=== PATIENT | female | born 1950 | race Caucasian/White ===

== ENCOUNTER 2016-09-22 05:06 | Emergency (ER) | payer MEDICARE ==
[2016-09-22] MEDS ORDERED: IPRATROPIUM-ALBUTEROL 3 ML NEB INHALATION STA ×2 (05:33→07:16)
--- NOTE | 2016-09-22 06:41 | XR ---
EXAM:Chest PA and lateral views INDICATION: 66 year-old female chest pain. COMPARISON: None. FINDINGS: PA and lateral views of the chest are obtained. Aortic calcification. The cardiomediastinal silhouette is within normal limits. Lungs are clear. No focal consolidation, pneumothorax, or pleural effusions. Degenerative changes of the spine. IMPRESSION: No acute cardiopulmonary disease.
--- NOTE | 2016-09-22 07:21 | ED ---
General Adult HPI - General Chief complaint: Shortness of Breath Stated complaint: asthma Time Seen by Provider: 09/22/16 07:00 Source: patient, RN notes reviewed Mode of arrival: ambulatory Limitations: no limitations - History of Present Illness Initial comments: This 66-year-old female with past medical history significant for COPD. Patient states she was recently started on Levaquin 2 days ago. Patient states this morning she woke up very short of breath and she decided to come into the emergency department. Patient states she thinks she might have panicked a little. Patient states when she arrived she was 94% on pulse ox which is pretty typical for her. Patient denies any chest pain or palpitations. Patient denies any recent fever. Patient states she has had a cough recently. Patient denies any headache patient denies numbness weakness. Patient denies lightheadedness dizziness or near syncopal episode. I saw the patient she received a breathing treatment and stated that this point in time she felt back to her baseline. - Related Data Home Medications Medication Instructions Recorded Confirmed ALPRAZolam [Xanax] 0.75 mg PO HS 10/10/15 09/22/16 Albuterol Sulfate [Proair Hfa] 1 - 2 puff INHALATION Q6HR PRN 10/10/15 09/22/16 Atenolol [Tenormin] 50 mg PO HS 10/10/15 09/22/16 Beclomethasone Dipropionate [Qvar 2 puff INHALATION BID 10/10/15 09/22/16 80 mcg/puff] Cetirizine HCl [Zyrtec] 10 mg PO DAILY PRN 10/10/15 09/22/16 Imipramine HCl 100 mg PO HS 10/10/15 09/22/16 Montelukast [Singulair] 10 mg PO HS 10/10/15 09/22/16 Simvastatin [Zocor] 20 mg PO HS 10/10/15 09/22/16 Allergies Allergy/AdvReac Type Severity Reaction Status Date / Time Penicillins Allergy Unknown Rash/Hives Verified 10/11/15 07:23 Review of Systems ROS Statement: Those systems with pertinent positive or pertinent negative responses have been documented in the HPI. ROS Other: All systems not noted in ROS Statement are negative. Past Medical History Past Medical History: Asthma, Hyperlipidemia Additional Past Medical History / Comment(s): HX OF GRAVES DISEASE WITH THYROID REMOVED & TAKES TENORMIN FOR OF RAPID HEART BEAT ., ENVIRONMENTAL ALLERGIES, COLITIS, History of Any Multi-Drug Resistant Organisms: None Reported Past Surgical History: Tonsillectomy, Tubal Ligation Additional Past Surgical History / Comment(s): THYROIDECTOMY Past Anesthesia/Blood Transfusion Reactions: No Reported Reaction, Family History of Problems w/ Anesthesia Additional Past Anesthesia/Blood Transfusion Reaction / Comment(s): SISTER = PONV Past Psychological History: Anxiety Smoking Status: Current every day smoker Past Alcohol Use History: Occasional Additional Past Alcohol Use History / Comment(s): SMOKES 1 PPD . SMOKING FOR 40 YEARS. Past Drug Use History: None Reported - Past Family History Mother Family Medical History: Cancer Additional Family Medical History / Comment(s): UTERINE CA Father Family Medical History: Cancer Additional Family Medical History / Comment(s): MULTIPLE MYELOMA General Exam - General Exam Comments Initial Comments: GENERAL: Patient is well-developed and well-nourished. Patient is nontoxic and well- hydrated and is in no acute distress. ENT: Neck is soft and supple. No significant lymphadenopathy is noted. Oropharynx is clear. Moist mucous membranes. Neck has full range of motion without eliciting any pain. EYES: The sclera were anicteric and conjunctiva were pink and moist. Extraocular movements were intact and pupils were equal round and reactive to light. Eyelids were unremarkable. PULMONARY: Patient still had expiratory wheezing bilaterally CARDIOVASCULAR: There is a regular rate and rhythm without any murmurs gallops or rubs. ABDOMEN: Soft and nontender with normal bowel sounds. No palpable organomegaly was noted. There is no palpable pulsatile mass. SKIN: Skin is clear with no lesions or rashes and otherwise unremarkable. NEUROLOGIC: Patient is alert and oriented x3. Cranial nerves II through XII are grossly intact. Motor and sensory are also intact. Normal speech, volume and content. Symmetrical smile. MUSCULOSKELETAL: Normal extremities with adequate strength and full range of motion. No lower extremity swelling or edema. No calf tenderness. LYMPHATICS: No significant lymphadenopathy is noted PSYCHIATRIC: Normal psychiatric evaluation. Normal interpersonal interactions appears functionally intact in deals appropriately with others. No signs of depression. No signs of anxiety. Limitations: no limitations Course Vital Signs 09/22/16 09/22/16 09/22/16 05:11 05:43 05:55 Temperature 97.8 F Pulse Rate 98 96 100 Respiratory 20 Rate Blood Pressure 149/70 O2 Sat by Pulse 94 L Oximetry 09/22/16 09/22/16 07:23 07:34 Temperature Pulse Rate 88 92 Respiratory Rate Blood Pressure O2 Sat by Pulse Oximetry Medical Decision Making - Medical Decision Making Patient received a breathing treatment prior to my seeing the patient. I gave her a second one she continued to have a current wheezing. She was satting 98% on room air felt considerably better though she continued to have some expiratory wheezing patient wanted to go home. I discharge the patient home. Patient has inhalers at home as well as steroids and an antibiotic. However patient does continue to smoke and I informed her that she needed to quit smoking and told her some of the detrimental effects of smoking she seemed to realizes and stated that it was about time. This conversation lasted for approximately 3 minutes. Disposition Clinical Impression: COPD exacerbation Disposition: HOME SELF-CARE Instructions: COPD (Chronic Obstructive Pulmonary Disease) (ED) Referrals: Maxi Sotelo MD [Primary Care Provider] - 1-2 days Time of Disposition: 07:51
[2016-09-22 07:34] VITALS: PULSE 92
[2016-09-22 08:17] VITALS: BP 142/70; RESP 18; TEMP 97.7
== END 2016-09-22 08:17 | disposition home or self-care (01) ==
LOC: EC 05:06
DX: J44.1 Chronic obstructive pulmonary disease with (acute) exacerbation (principal); E78.5 Hyperlipidemia, unspecified; F41.9 Anxiety disorder, unspecified; F17.200 Nicotine dependence, unspecified, uncomplicated; Z79.51 Long term (current) use of inhaled steroids; Z79.899 Other long term (current) drug therapy; Z88.0 Allergy status to penicillin
CPT/HCPCS: 71020; 94640; 99285

== ENCOUNTER → 2016-10-15 | Outpatient (CLI) | payer MEDICARE ==
[2016-10-15 11:29] LABS: Blood Urea Nitrogen 6 mg/dL (7-17); Non-African American GFR(MDRD) >60 (>60 ml/min/1.73 sqM)
--- NOTE | 2016-10-15 14:38 | CT ---
EXAMINATION TYPE: CT abdomen pelvis wo/w con DATE OF EXAM: 10/15/2016 COMPARISON: 10/26/2010 INDICATION: Patient complains of history of colitis and recent weight loss. DLP: 1247.1 mGycm, Automated exposure control for dose reduction was used. CONTRAST: 100 mL of Omnipaque 300. Study performed with Oral Contrast TECHNIQUE: Axial images were obtained from above the diaphragm to the pubic rami in the axial plane a t 5 mm thick sections. Reconstructed images are reviewed on the computer in the coronal plane. FINDINGS: Limited CT sections are obtained the lung bases. The lung bases are clear. CT ABDOMEN: Liver: Normal Spleen: Normal Pancreas: Normal Adrenal glands: The adrenal glands are normal. Gallbladder: Normal Kidneys: No masses are evident. No hydronephrosis is present. No cysts are present. Delayed images were obtained through the kidneys, which remain unremarkable. Aorta: Vascular calcification is within the aorta. Inferior vena cava: Normal. CT PELVIS: Loops of bowel within the abdomen and pelvis are normal. There are loops of bowel which are incom pletely distended or lack oral contrast limiting their evaluation. There may be some wall thickening within the mid to distal sigmoid colon. This could be related to incomplete distention. Underlying co litis or mass is not excluded. Sigmoidoscopy could further evaluate this region. This appears changed from 10/26/2010. Appendix: Not clearly identified. No suspicious inflammatory changes are evident. What appears to be appendix is not opacified. Urinary bladder: Normal. Genitourinary structures: Uterus contains some calcification. Calcified fibroid is likely within the left body of the uterus. Adnexal regions are clear. No free fluid is within the pelvis Osseous structures: Degenerative disc changes and scoliosis are within the lumbar spine. IMPRESSIONS: 1. Incomplete distention or some diffuse thickening through the distal sigmoid colon is not excluded . Consider sigmoidoscopy for additional evaluation.
== END | disposition home or self-care (01) ==
LOC: RADCTMAIN 10:41
PROVIDERS: ATTEND Internal Medicine Gastroenterology
DX: R63.4 Abnormal weight loss (principal)
CPT/HCPCS: 82565; 84520; 74178; 36415; Q9967

== ENCOUNTER → 2017-03-29 | Outpatient (CLI) | payer MEDICARE ==
--- NOTE | 2017-04-02 08:37 | MM ---
Reason for exam: screening (asymptomatic). Last mammogram was performed 1 year and 1 month ago. History: Patient is postmenopausal and is nulliparous. Family history of breast cancer in mother at age 65 and premenopausal breast cancer in maternal aunt. Physical Findings: A clinical breast exam by your physician is recommended on an annual basis and results should be correlated with mammographic findings. MG 3D Screening Mammo W/Cad Bilateral CC and MLO view(s) were taken. Prior study comparison: March 08, 2016, bilateral MG 3d screening mammo w/cad. August 22, 2015, right breast MG 3d diag mammo w/cad RT. The breast tissue is heterogeneously dense. This may lower the sensitivity of mammography. Stable calcifications in the right upper outer quadrant. No significant changes when compared with prior studies. ASSESSMENT: Negative, BI-RAD 1 RECOMMENDATION: Routine screening mammogram of both breasts in 1 year.
== END | disposition home or self-care (01) ==
LOC: RADMAMWWP 15:14
PROVIDERS: ATTEND Family Medicine
DX: Z12.31 Encounter for screening mammogram for malignant neoplasm of breast (principal)
CPT/HCPCS: 77063; G0202

== ENCOUNTER → 2018-02-13 | Outpatient (CLI) | payer MEDICARE ==
--- NOTE | 2018-02-13 20:59 | EST ---
EXERCISE STRESS DATE OF SERVICE: 02/13/2018 AGE: 67 SEX: Fe HT: 66" WT: 170 PROTOCOL: Stress Echo STAGE: 2 DURATION OF EXERCISE: 4:00 minutes HEART RATE REST: 107 BLOOD PRESSURE REST: 101/53 MAXIMUM HEART RATE ACHIEVED: 153 MAXIMUM BLOOD PRESSURE: 151/42 85% MPHR: 130 100% MPHR: 153 METS: 5.6 INDICATIONS: Palpitations. CONCLUSION: Baseline EKG revealed normal sinus rhythm without significant ST-T changes. Patient walked on a standard Michael protocol for 4 minutes and achieved a maximal heart rate of 153 beats per minute which is well above 85% of predicted maximal. There was no evidence of any stress-induced ischemia on this study. There was some artifact noted. Patient did not have any angina and there was no significant arrhythmia. By EKG criteria, this is a negative stress test with limited exercise capacity. Baseline echo images revealed normal wall motion wall thickening of all segments. At peak exercise there was good augmentation of left ventricular wall motion wall thickening of all segments suggesting that there is no evidence of stress-induced ischemia on this study. IMPRESSION: 1. Limited exercise capacity with a negative stress test by EKG criteria. 2. Normal stress echocardiogram. MMODL / IJN: [id number] /
== END ==
LOC: RADNMMAIN 09:53
PROVIDERS: ATTEND Family Medicine
DX: R00.2 Palpitations (principal)
CPT/HCPCS: 93351

== ENCOUNTER → 2018-03-31 | Outpatient (CLI) | payer MEDICARE ==
--- NOTE | 2018-03-31 13:45 | BD ---
EXAMINATION TYPE: Axial Bone Density DATE OF EXAM: 03/31/2018 COMPARISON: 02/09/15 CLINICAL HISTORY: Postmenopausal female. Osteoporosis screening. Height: 63.5 IN Weight: 170 LBS FRAX RISK QUESTIONS: Secondary Osteoporosis: Current Tobacco Use: YES RISK FACTORS HISTORY OF: Active: YES Diet low in dairy products/other sources of calcium: YES Postmenopausal woman: AGE 49 Take estrogen and/or progesterone medications: NOT NOW How lon YEARS Lost more than 2 inches in height since high school: YES 05/07" MEDICATIONS: Additional Medications: VIT D, TENORMIN, SINGULAIR, IMPRANIME, CHOLESTEROL MEDS, XANAX, REMICADE INFU SIONS FOR COLITIS, INHALERS EXAM MEASUREMENTS: Bone mineral densitometry was performed using the [place] System. Bone mineral density as measured about the Lumbar spine is: ----- L1-L4(G/cm2): 1.243 T Score Values are as follows: ----- L2: -0.1 ----- L3: -0.4 ----- L4: 1.7 ----- L1-L4: 0.5 Bone mineral density has: Increased 1.5% since study of: 02/09/2015 Bone mineral density about the R hip (g/cm2): 0.864 Bone mineral density about the L hip (g/cm2): 0.938 T Score values are as follows: -----R Neck: -1.2 -----L Neck: -0.7 -----R Total: -0.7 -----L Total: -0.6 Bone mineral density has: Decreased -2.6% since study of: 02/09/2015 IMPRESSION: Osteopenia (T Score between -2.5 and -1) with regards to the right femur. There is slightly increased risk of fracture and the patient may be considered for treatment. Re-Screen 2-5 years. NOTE: T-SCORE=SD OF THE YOUNG ADULT MEAN.
--- NOTE | 2018-04-01 14:34 | MM ---
Reason for exam: screening (asymptomatic). Last mammogram was performed 1 year ago. History: Patient is postmenopausal and is nulliparous. Family history of breast cancer in mother at age 65 and premenopausal breast cancer in maternal aunt. Physical Findings: A clinical breast exam by your physician is recommended on an annual basis and results should be correlated with mammographic findings. MG 3D Screening Mammo W/Cad Bilateral CC and MLO view(s) were taken. Prior study comparison: March 29, 2017, bilateral MG 3d screening mammo w/cad. March 08, 2016, bilateral MG 3d screening mammo w/cad. The breast tissue is heterogeneously dense. This may lower the sensitivity of mammography. There is chronic nodularity bilaterally. Increasing nodule upper inner left breast middle third position. ASSESSMENT: Incomplete: need additional imaging evaluation, BI-RAD 0 RECOMMENDATION: Special view mammogram of the left breast. If lesion persists on supplemental views, image directed ultrasound is recommended. [facility] will attempt to contact patient to return for supplemental views and ultrasound if indicated.
== END | disposition home or self-care (01) ==
LOC: RADMAMWWP 11:51
PROVIDERS: ATTEND Family Medicine
DX: Z12.31 Encounter for screening mammogram for malignant neoplasm of breast (principal); M85.88 Other specified disorders of bone density and structure, other site; R00.2 Palpitations; Z78.0 Asymptomatic menopausal state
CPT/HCPCS: 77063; 77067; 77080

== ENCOUNTER → 2018-04-04 | Outpatient (CLI) | payer MEDICARE ==
--- NOTE | 2018-04-07 08:56 | MM ---
Reason for exam: additional evaluation requested from abnormal screening. Last mammogram was performed less than 1 month ago. History: Patient is postmenopausal and is nulliparous. Family history of breast cancer in mother at age 65 and premenopausal breast cancer in maternal aunt. Took hormonal contraceptives beginning at age 20. Physical Findings: Nurse did not find any significant physical abnormalities on exam. MG 3D Work Up W/Cad LT Spot compression CC, spot compression MLO, and LM view(s) were taken of the left breast. Prior study comparison: March 31, 2018, bilateral MG 3d screening mammo w/cad. March 29, 2017, bilateral MG 3d screening mammo w/cad. Density is improved however persists. Ultrasound is recommended. These results were verbally communicated with the patient and result sheet given to the patient on 04/04/18. ASSESSMENT: Incomplete: need additional imaging evaluation, BI-RAD 0 RECOMMENDATION: Ultrasound of the left breast.
--- NOTE | 2018-04-07 09:47 | USB ---
Reason for exam: additional evaluation requested from abnormal screening. History: Patient is postmenopausal and is nulliparous. Family history of breast cancer in mother at age 65 and premenopausal breast cancer in maternal aunt. Took hormonal contraceptives beginning at age 20. US Breast Workup Limited LT Left limited breast ultrasound including focal area of concern, retroareolar and axilla demonstrates no cystic or solid lesion seen. These results were verbally communicated with the patient and result sheet given to the patient on 04/04/18. ASSESSMENT: Probably benign, BI-RAD 3 RECOMMENDATION: Follow-up diagnostic mammogram of the left breast in 6 months.
== END ==
LOC: RADMAMWWP 13:33
PROVIDERS: ATTEND Family Medicine
DX: R92.8 Other abnormal and inconclusive findings on diagnostic imaging of breast (principal)
CPT/HCPCS: 77065; 76642; G0279; 77061

== ENCOUNTER → 2018-08-04 | Outpatient (CLI) | payer MEDICARE ==
--- NOTE | 2018-08-04 11:08 | US ---
EXAMINATION TYPE: US duplex aorta DATE OF EXAM: 08/04/2018 COMPARISON: CT abdomen and pelvis 2017 CLINICAL HISTORY: I70.0 Atherosclerosis of aorta. no h/o AAA, no symptoms EXAM MEASUREMENTS: Abdominal Aorta: Proximal: 2.5 x 2.0cm Mid: 2.2 x 1.8cm Distal: 1.7 x 1.5cm Bifurcation: Rt1.0cm Lt1.0cm Normal caliber aorta seen with arthrosclerotic changes seen. IMPRESSION: No ultrasound evidence for AAA. Findings correlate with [address] CT.
--- NOTE | 2018-08-04 11:09 | US ---
EXAMINATION TYPE: US carotid duplex BILAT DATE OF EXAM: 08/04/2018 COMPARISON: NONE CLINICAL HISTORY: I70.0 Atherosclerosis of aorta. dizziness, no h/o stroke EXAM MEASUREMENTS: RIGHT: Peak Systolic Velocity (PSV) cm/sec ----- Right CCA: 75.8 ----- Right ICA: 122.0 ----- Right ECA: 155.0 ICA/CCA ratio: 1.6 RIGHT: End Diastole cm/sec ----- Right CCA: 19.2 ----- Right ICA: 43.8 ----- Right ECA: 19.2 LEFT: Peak Systolic Velocity (PSV) cm/sec ----- Left CCA: 89.5 ----- Left ICA: 139.0 ----- Left ECA: 175 ICA/CCA ratio: 1.5 LEFT: End Diastole cm/sec ----- Left CCA: 26.2 ----- Left ICA: 36.2 ----- Left ECA: 29.2 VERTEBRALS (direction of flow): Right Vertebral: Antegrade Left Vertebral: Antegrade Rhythm: Normal Mild homogeneous plaque with no stenosis seen, tortuous dist ICA noted IMPRESSION: No hemodynamic significant stenosis seen in either internal carotid artery. Criteria for Assigning % of Stenosis / Diameter reduction (Estimation based on the indirect measurements of the internal carotid artery velocities (ICA PSV). 1. Normal (no stenosis)=ICA PSV < 125 cm/s: ratio < 2.0: ICA EDV<40 cm/s. 2. Less than 50% stenosis=ICA PSV < 125 cm/s: ratio < 2.0: ICA EDV<40 cm/s. 3. 50 to 69% stenosis=ICA PSV of 125 to 230 cm/s: ration 2.0 ? 4.0: ICA EDV 40-100 cm/s. 4. Greater than 70% stenosis to near occlusion= ICA PSV > 230 cm/s: ratio > 4.0: ICA EDV > 100 cm/s. 5. Near occlusion= ICA PSV velocities may be low or undetectable: variable ratio and ICA EDV. 6. Total occlusion=unable to detect flow.
== END | disposition home or self-care (01) ==
LOC: RADUSWWP 10:16
PROVIDERS: ATTEND Family Medicine
DX: I70.0 Atherosclerosis of aorta (principal); R42 Dizziness and giddiness
CPT/HCPCS: 93880; 93979

== ENCOUNTER → 2018-08-26 | Outpatient (CLI) | payer MEDICARE | END | disposition home or self-care (01) | LOC: LABWHC1 16:06 | PROVIDERS: ATTEND Internal Medicine | DX: K51.519 Left sided colitis with unspecified complications (principal) | CPT/HCPCS: 36415; 86480 ==

== ENCOUNTER → 2018-10-27 | Outpatient (CLI) | payer MEDICARE ==
--- NOTE | 2018-10-27 13:40 | MM ---
Reason for exam: follow-up at short interval from prior study. Last mammogram was performed 7 months ago. History: Patient is postmenopausal and is nulliparous. Family history of breast cancer in mother at age 65 and premenopausal breast cancer in maternal aunt. Took hormonal contraceptives beginning at age 20. Physical Findings: Nurse did not find any significant physical abnormalities on exam. MG 3D Diag Mammo W/Cad LT CC, MLO, and ML view(s) were taken of the left breast. Prior study comparison: April 04, 2018, left breast MG 3d work up w/cad LT. March 31, 2018, bilateral MG 3d screening mammo w/cad. The breast tissue is heterogeneously dense. This may lower the sensitivity of mammography. No suspicious abnormality. The left upper inner quadrant focal asymmetry is stable back to 2013 and should be considered benign. These results were verbally communicated with the patient and result sheet given to the patient on 10/27/18. ASSESSMENT: Benign, BI-RAD 2 RECOMMENDATION: Return to routine screening mammogram schedule for both breasts. Back on schedule for March 2019.
== END | disposition home or self-care (01) ==
LOC: RADMAMWWP 12:54
PROVIDERS: ATTEND Family Medicine
DX: R92.8 Other abnormal and inconclusive findings on diagnostic imaging of breast (principal)
CPT/HCPCS: 77065; G0279; 77061

== ENCOUNTER → 2019-04-16 | Outpatient (CLI) | payer MEDICARE ==
--- NOTE | 2019-04-17 10:39 | MM ---
Reason for exam: follow-up at short interval from prior study. Last mammogram was performed 6 months ago. History: Patient is postmenopausal and is nulliparous. Family history of breast cancer in mother at age 65 and premenopausal breast cancer in maternal aunt. Took hormonal contraceptives beginning at age 20. Physical Findings: Nurse did not find any significant physical abnormalities on exam. MG 3D Diag Mammo W/Cad MARIELA Bilateral CC and MLO view(s) were taken. Prior study comparison: October 27, 2018, left breast MG 3d diag mammo w/cad LT. April 04, 2018, left breast MG 3d work up w/cad LT. The breast tissue is heterogeneously dense. This may lower the sensitivity of mammography. Stable calcifications right breast. Focal asymmetry inner left CC is stable dating back to 2014. These results were verbally communicated with the patient and result sheet given to the patient on 04/16/19. ASSESSMENT: Benign, BI-RAD 2 RECOMMENDATION: Routine screening mammogram of both breasts in 1 year.
== END ==
LOC: RADMAMWWP 13:00
PROVIDERS: ATTEND Family Medicine
DX: R92.8 Other abnormal and inconclusive findings on diagnostic imaging of breast (principal)
CPT/HCPCS: 77066; G0279; 77062

== ENCOUNTER → 2019-06-08 | Outpatient (CLI) | payer MEDICARE ==
[2019-06-08 12:33] LABS: African American GFR (CKD) >90 (>60 ml/min/1.73 sqM); Blood Urea Nitrogen 11 mg/dL (7-17); Non-African American GFR(CKD) >90 (>60 ml/min/1.73 sqM)
--- NOTE | 2019-06-08 13:25 | CT ---
EXAMINATION TYPE: CT chest w con DATE OF EXAM: 06/08/2019 COMPARISON: None HISTORY: Right upper lung mass found on MRI. CT DLP: 291 mGycm Automated exposure control for dose reduction was used. CONTRAST: CT scan of the chest is performed with IV Contrast, patient injected with 100 mL of Isovue 300. FINDINGS: LUNGS: Pleural-based right upper lobe pulmonary nodule measuring 1.9 x 1.9 cm. Few scattered sub-3 mm pulmonary nodules are seen scattered within the right lung. There is interstitial prominence noted b ilaterally. MEDIASTINUM: There are no greater than 1 cm hilar or mediastinal lymph nodes. No pericardial effusi on is seen. Thoracic aorta is of normal caliber. The heart is not enlarged. UPPER ABDOMEN: No significant abnormality appreciated. OTHER: No additional significant abnormality is seen. IMPRESSION: 1. Pleural-based right upper lobe pulmonary nodule measuring 1.9 x 1.9 cm. Few scattered sub-3 mm pu lmonary nodules are seen scattered within the right lung. Primary malignancy or metastatic disease no t excluded.
== END | disposition home or self-care (01) ==
LOC: RADCTMAIN 11:56
PROVIDERS: ATTEND Internal Medicine Critical Care Medicine
DX: R91.1 Solitary pulmonary nodule (principal); Z88.0 Allergy status to penicillin; Z79.2 Long term (current) use of antibiotics
CPT/HCPCS: 82565; 84520; 71260; 36415; Q9967

== ENCOUNTER → 2019-06-12 | Outpatient (CLI) | payer MEDICARE ==
--- NOTE | 2019-06-16 13:05 | PE ---
EXAMINATION TYPE: PET CT fusion skull to thigh DATE OF EXAM: 06/12/2019 COMPARISON: CT chest dated 06/08/2019 HISTORY: Solitary pulmonary nodule. Initial treatment strategy. Left lung biopsy on 06/15/2019. TECHNIQUE: Following the intravenous administration of 13.5 mCi of F-18 FDG, whole body images are p erformed from the skull base to the midthigh. Images are reviewed on the computer in the coronal, ax ial, and sagittal planes. Reconstructed rotating images are created on independent workstation and r eviewed on the computer. A localization and attenuation correction CT is performed in conjunction w ith the PET scan. SCAN: Initial treatment strategy FINDINGS: Mediastinal background: 0.88 Abdominal background: 2.34 SKULL BASE AND NECK: No suspicious hypermetabolic uptake. CHEST, MEDIASTINUM, AND HILAR REGION: The pleural-based 1.9 cm right upper lobe pulmonary nodule has a maximum SUV of 4.0. The scattered sub-3 mm pulmonary nodules in the right lung are below the thresh old of PET CT and cannot be evaluated with PET/CT. ABDOMEN AND PELVIS: There is focal hypermetabolic uptake (maximum SUV of 4.6) anterior to the left th igh adductor musculature with a small nodule 8 mm and surrounding focal fat stranding. Correlate for recent intervention within the left groin. OSSEOUS STRUCTURES: No suspicious hypermetabolic uptake. OTHER CT: Moderate atheromatous changes are seen of the carotid arteries. Moderate to severe atherosc lerosis of the thoracic aorta. Main pulmonary artery is mildly enlarged measuring 3.1 cm. Moderate co ronary artery calcifications are seen. There is a small hiatal hernia. There is moderate background emphysematous change of the lungs. Small splenule seen adjacent to the n ative spleen. There is a nonobstructing right upper pole 7 mm renal calculus. Extensive atheromatous changes of the abdominal aorta and its branches. Dystrophic calcifications adjacent to the uterus are likely contiguous with the uterus and likely from degenerative leiomyomas. Very small fat filled. Do uble hernia. Moderate degenerative change of the spine. IMPRESSION: 1. Solitary biopsy-proven 1.9 cm right upper lobe hypermetabolic pulmonary neoplasm. No evidence of m etastasis within the chest, abdomen, or pelvis. No abnormal thoracic, supraclavicular, or infradiaphr agmatic adenopathy. 2. Abnormal hypermetabolic uptake within the left anterior medial upper thigh subcutaneous tissues wi th FDG avidity greater than the solitary pulmonary nodule. Correlate for any recent surgical interven tion or trauma.
== END | disposition home or self-care (01) ==
LOC: RADPETMAIN 16:38
PROVIDERS: ATTEND Internal Medicine Critical Care Medicine
DX: R91.1 Solitary pulmonary nodule (principal)
CPT/HCPCS: 78815; A9552

== ENCOUNTER 2019-06-15 08:49 | Day surgery (SDC) | payer MEDICARE ==
[2019-06-15 09:27] VITALS: TEMP 98.1
[2019-06-15 09:32] LABS: Mean Platelet Volume 7.8; Platelet Count 393 k/uL (150-450)
[2019-06-15 09:45] LABS: INR 0.9 (<1.2); Prothrombin Time 9.9 sec (9.0-12.0)
--- NOTE | 2019-06-15 10:55 | XR ---
EXAMINATION TYPE: XR chest 1V portable DATE OF EXAM: 06/15/2019 COMPARISON: 06/08/2019 CT chest, 09/22/2016 INDICATION: Postbiopsy TECHNIQUE: Single frontal view of the chest is obtained. FINDINGS: The heart size is normal. The pulmonary vasculature is normal. There is diffuse increased lung markings throughout the bilateral lung dickerson. The anterior right upp er lobe nodule is not identified chest x-ray. No pneumothorax is evident post biopsy. IMPRESSION: 1. Diffuse increased lung markings. 2. No pneumothorax post biopsy
[2019-06-15 11:55] VITALS: RESP 16
--- NOTE | 2019-06-15 12:55 | XR ---
EXAMINATION TYPE: XR chest 1V portable DATE OF EXAM: 06/15/2019 COMPARISON: 06/15/2019 INDICATION: Post lung biopsy TECHNIQUE: Single frontal view of the chest is obtained. FINDINGS: The heart size is normal. The pulmonary vasculature is normal. There is diffuse increased lung markings. This may have some slight improvement over the interval. No pneumothorax is evident. Density left suprahilar region may be better visualized than the prior exam . IMPRESSION: 1. No pneumothorax post right lung biopsy.
[2019-06-15 13:07] VITALS: BP 135/63; PULSE 90
--- NOTE | 2019-06-15 13:11 | CT ---
EXAMINATION TYPE: CT biopsy lung LT DATE OF EXAM: 06/15/2019 COMPARISON: 06/12/2019 HISTORY: Right upper lobe lung mass CT DLP: 3328 mGycm The procedure is discussed with the patient, the risks, complications, benefits and alternatives, wer e discussed and any questions were answered. Informed consent was obtained. The patient is placed p sukumar on the CT table, prepped and draped in the usual sterile fashion. Utilizing a 20-gauge or biceps needle access into the right upper lobe mass was achieved with 2 passe s performed. Pathology pending. All elements of maximal barrier technique were utilized. The patie nt remained stable throughout the procedure with no immediate postprocedural complication. IMPRESSION: 1. Successful CT guided core biopsy right upper lobe lung mass
== END 2019-06-15 13:10 | disposition home or self-care (01) ==
LOC: RADPROMAIN 08:49
PROVIDERS: ATTEND Internal Medicine Critical Care Medicine
DX: C34.11 Malignant neoplasm of upper lobe, right bronchus or lung (principal)
CPT/HCPCS: 36415; 71045; 77012; 85049; 85610; 88305; 88341; 88342

== ENCOUNTER → 2019-07-09 | Outpatient (CLI) | payer MEDICARE ==
[2019-07-09 13:56] LABS: Appearance,Urine Cloudy (Clear); Bacteria,Urine Rare /hpf; Bilirubin,Urine Negative (Negative); Blood,Urine Negative (Negative); Color,Urine Yellow; Glucose,Urine (UA) Negative (Negative); Ketones,Urine Negative (Negative); Leukocyte Esterase,Urine Large (Negative); Mucus,Urine Many /hpf; Nitrite,Urine Negative (Negative); Protein,Urine Negative (Negative); Specific Gravity,Urine 1.011 (1.001-1.035); Squamous Epithelial Cell,Urine 13 /hpf (0-4); Urobilinogen,Urine <2.0 mg/dL (<2.0); WBC,Urine 5 /hpf (0-5)
[2019-07-09 14:28] LABS: Basophils # (A) 0.1 k/uL (0-0.2); Basophils % (A) 1 %; Eosinophils # (A) 0.1 k/uL (0-0.7); Eosinophils % (A) 1 %; HCT 46.3 % (34.0-46.0); HGB 14.9 gm/dL (11.4-16.0); Lymphocytes # (A) 2.5 k/uL (1.0-4.8); Lymphocytes % (A) 23 %; MCH 28.4 pg (25.0-35.0); MCHC 32.1 g/dL (31.0-37.0); MCV 88.6 fL (80.0-100.0); Mean Platelet Volume 7.8; Monocytes # (A) 0.5 k/uL (0-1.0); Monocytes % (A) 5 %; Neutrophils # (A) 7.6 k/uL (1.3-7.7); Neutrophils % (A) 69 %; Platelet Count 440 k/uL (150-450); RBC 5.23 m/uL (3.80-5.40); RDW 13.2 % (11.5-15.5)
[2019-07-09 14:33] LABS: INR 0.9 (<1.2); Partial Thromboplastin Time 26.8 sec (22.0-30.0); Prothrombin Time 9.7 sec (9.0-12.0)
[2019-07-09 14:50] LABS: African American GFR (CKD) >90 (>60 ml/min/1.73 sqM); Anion Gap 10 mmol/L; Blood Urea Nitrogen 8 mg/dL (7-17); Carbon Dioxide 27 mmol/L (22-30); Chloride 100 mmol/L (98-107); Glucose 97 mg/dL (74-99); Non-African American GFR(CKD) >90 (>60 ml/min/1.73 sqM); Potassium 4.1 mmol/L (3.5-5.1); Sodium 137 mmol/L (137-145)
== END | disposition home or self-care (01) ==
LOC: LABPAT 13:17
PROVIDERS: ATTEND Thoracic Surgery (Cardiothoracic Vascular Surgery)
DX: Z01.818 Encounter for other preprocedural examination (principal); Z01.812 Encounter for preprocedural laboratory examination; C34.11 Malignant neoplasm of upper lobe, right bronchus or lung; R73.9 Hyperglycemia, unspecified; R58 Hemorrhage, not elsewhere classified; Z51.81 Encounter for therapeutic drug level monitoring
CPT/HCPCS: 36415; 80051; 81001; 82565; 82947; 84520; 85025; 85610; 85730; 87086; 93005

== ENCOUNTER 2019-07-16 06:00 | Inpatient (IN) | payer MEDICARE ==
[2019-07-14 16:00] VITALS: BMI 30.6
[2019-07-16] MEDS ORDERED: HYDROmorphone 0.5 MG/0.5 ML SYRINGE IVP PRN (06:09)
[2019-07-16] MEDS ORDERED: fentaNYL (PF) 50 MCG/ML 2 ML AMP IVP PRN (06:09)
[2019-07-16] MEDS ORDERED: LIDOCAINE 1% (10MG/ML) FOR IV START INTRADERMA PRN (06:09)
[2019-07-16] MEDS ORDERED: MIDAZOLAM 2 MG/2 ML VIAL IV PRN (06:09)
[2019-07-16] MEDS ORDERED: ONDANSETRON 4 MG/2 ML VIAL IVP ONE (06:09)
[2019-07-16] MEDS ORDERED: DEXAMETHASONE SOD PHOSPHATE 10 MG/ML 1 ML VIAL IV ONE (06:09)
[2019-07-16] MEDS: LACTATED RINGERS 1,000 ML IV SCH (06:50)
[2019-07-16] MEDS ORDERED: SCOPOLAMINE 1.5MG/72HR PATCH TRANSDERM ONE (07:00)
[2019-07-16] MEDS ORDERED: HYDROmorphone (PF) 1 MG/ML ONE (07:25)
[2019-07-16] MEDS ORDERED: SUCCINYLCHOLINE CHLORIDE 100 MG/5 ML SYR IV ONE (07:25)
[2019-07-16] MEDS ORDERED: PROPOFOL 10 MG/ML 20 ML VIAL IV ONE (07:25)
[2019-07-16] MEDS ORDERED: ROCURONIUM BROMIDE 10 MG/ML 5 ML VIAL IV ONE (07:25)
[2019-07-16] MEDS ORDERED: .MORPHINE SULFATE (INJ) 10 MG/ML SYRINGE ONE (07:25)
[2019-07-16] MEDS ORDERED: fentaNYL (PF) 50 MCG/ML 2 ML AMP ONE (07:25)
[2019-07-16] MEDS ORDERED: GLYCOPYRROLATE 0.2 MG/ML 2 ML VIAL ONE (07:25)
[2019-07-16] MEDS ORDERED: NEOSTIGMINE 1 MG/ML 10 ML VIAL ONE (07:25)
[2019-07-16] MEDS ORDERED: METOPROLOL TARTRATE 5 MG/5 ML VIAL IVP ONE (07:25)
[2019-07-16] MEDS ORDERED: MIDAZOLAM 2 MG/2 ML VIAL ONE (07:25)
[2019-07-16] MEDS ORDERED: LIDOCAINE 1% INJ 10MG/ML (20 ML MDV) ONE (07:25)
[2019-07-16] MEDS ORDERED: BUPIVACAINE (PF) 0.5% 30 ML VIAL SQ ONE (08:27)
[2019-07-16] MEDS ORDERED: LACTATED RINGERS 1,000 ML IV ONE (09:03)
--- NOTE | 2019-07-16 10:49 | P.OP ---
Date of Procedure: 07/16/19 Preoperative Diagnosis: Adenocarcinoma right upper lobe of lung Postoperative Diagnosis: Same Procedure(s) Performed: Robotic-assisted thoracoscopic right upper lobectomy with mediastinal lymph node dissection Anesthesia: JIM Surgeon: Renny Reina Chief Vendor Quality #1: Saad Gurrola Estimated Blood Loss (ml): 20 IV fluids (ml): 1,000 Urine output (ml): 500 Pathology: other (Right upper lobe for frozen section of bronchial margin and permanent section; lymph node stations R4, level 7, R8, R9, R 10, R 11 all for permanent section) Condition: stable Disposition: PACU Indications for Procedure: 69-year-old female with mass in right upper lobe proved to be adenocarcinoma on biopsy. Staging revealed clinical stage IA disease. Lobectomy was recommended. Pulmonary function was adequate. Operative Findings: Pleural space was free. Fissures were incomplete. Small tumor was palpable in the posterior portion of the right upper lobe. There was mild mediastinal anthracotic lymphadenopathy. There was more pronounced hilar anthracotic lymphadenopathy. There was hyperemia of the hilar mediastinal structures. Frozen section of the bronchial margin was negative. Description of Procedure: The patient was brought to the operating room, placed supine on the operating table, anesthetized and intubated with a double-lumen endotracheal tube. Tube was positioned with fiberoptic bronchoscopy. No endobronchial lesions were noted. Tube was secured and the patient turned in the left lateral decubitus position. The patient was appropriately positioned for thoracoscopic lobectomy. The right chest was sterilely prepped and draped. For robotic port incisions were made. The initial incision was made in the eighth interspace in the anterior axillary line and a 8 mm port was placed here. Posterior axillary line eighth interspace was a 10 mm port. Anteriorly near the diaphragmatic sulcus a 10 mm port was placed in the seventh interspace. Posteriorly near the spine a 8 mm port was placed just above the superior aspect of the greater fissure. The robot was docked. A working port was placed between the 2 anterior most incisions at the level of the diaphragm. Dissection was begun at the inferior pulmonary ligament which was taken down. R9 lymph nodes were encountered and resected and sent for permanent section. Dissection was carried up posterior to the inferior pulmonary vein and the R8 and level 7 lymph nodes were resected. Dissection was carried anterior onto the bronchus intermedius. The lymph node between the takeoff of the bronchus intermedius from the upper lobe bronchus was resected. Posterior segmental branch the pulmonary artery to the upper lobe was identified and mobilized. It was ligated and divided with a robotic vascular stapler. We now encircled the upper lobe bronchus and ligated and divided it with a robotic stapler. Further hilar lymphadenopathy was now mobilized. Dissection was now carried anteriorly and the ranches of the pulmonary vein draining the upper lobe were encircled and ligated and divided with robotic vascular stapler. Dissection was carried onto the pulmonary artery. Small branches leading to the anterior segment of the upper lobe was ligated and divided with a robotic vascular stapler. Further lymph node dissection was now carried out in the remaining hilar nodes were resected en bloc with the specimen. The truncus anterious was dissected out and ligated and divided with a robotic vascular stapler. The remaining pleural reflection superiorly was taken down and the lobectomy specimen was now completely freed. It was retracted out of the way and the R 10 and R4 lymph nodes were resected. The lobectomy specimen was now placed in an Endo Catch bag and brought out through the working port. The working port was removed and the incision enlarged to allow the specimen out in the Endo Catch bag. Specimen was examined on the back table and the tumor was identified. The specimen was sent down for frozen section of the bronchial margin. The chest was now filled with warm water. The lung was inflated under direct vision. Staple lines and bronchus stump were without air leak. There was a small tear in the pleural surface of the middle lobe which did have an air leak. This was left alone. 28-Mexican chest tube was placed through the anteriormost incision and positioned posterior apically. It was secured with an 0 silk suture. Rib blocks were performed at the level of the incisions with half percent Marcaine posteriorly. The incisions were closed with layers of Vicryl suture. Band-Aid dressings and a chest tube dressing were applied. Patient was turned supine and extubated and transferred to recovery in stable condition.
--- NOTE | 2019-07-16 11:33 | XR ---
EXAMINATION TYPE: XR chest 1V portable DATE OF EXAM: 07/16/2019 CLINICAL HISTORY: Postlobectomy. TECHNIQUE: Single AP portable upright view of the chest is obtained. COMPARISON: Chest x-ray from June 15, 2019. Chest CT June 08, 2019. FINDINGS: There is new right apical chest tube. Small to tiny right apical pneumothorax present desp ite chest tube placement estimated 5%. New Right-sided volume loss with mediastinal shift consistent with history of partial right-sided pneumonectomy. Background chronic reticulonodular opacities bilat erally. Stable mild cardiomegaly with atherosclerotic aorta. Slightly more prominent left basilar ate lectasis and/or developing infiltrate. Osseous structures are demineralized. IMPRESSION: 1. New small to tiny right apical pneumothorax despite chest tube placement. 2. Interval partial pneumonectomy with corresponding right-sided volume loss. Mild cardiomegaly and C hronic reticulonodular parenchymal opacities bilaterally redemonstrated with slightly more prominent left basilar atelectasis and/or less likely infiltrate noted.
[2019-07-16] MEDS ORDERED: ACETAMINOPHEN TAB 500 MG TAB PO PRN (14:04)
[2019-07-16] MEDS ORDERED: IPRATROPIUM-ALBUTEROL 3 ML NEB IH PRN (14:04)
[2019-07-16] MEDS ORDERED: DEXTROSE 5%-0.45% NACL 1,000 ML IV SCH (14:04)
[2019-07-16] MEDS ORDERED: ONDANSETRON 4 MG/2 ML VIAL IVP PRN (14:04)
[2019-07-16] MEDS: KETOROLAC 30 MG/ML 1 ML VIAL IVP SCH ×3 (14:27→22:19)
[2019-07-16] MEDS: traMADol 50 MG TAB PO SCH ×4 (14:28→23:56)
--- NOTE | 2019-07-16 14:55 | XR ---
EXAMINATION TYPE: XR chest 1V DATE OF EXAM: 07/16/2019 CLINICAL HISTORY: Post lobectomy progress study. TECHNIQUE: Single AP portable upright view of the chest is obtained. COMPARISON: Chest x-ray from earlier today. FINDINGS: There is now second right-sided chest tube. No pneumothorax after second tube placement. R ight-sided volume loss from partial pneumonectomy changes redemonstrated. Some improved aeration left lung base. Low lung volumes with chronic reticulonodular opacities bilaterally again seen. Cardiac s ilhouette size is stable and mildly enlarged. Underlying levoconvex scoliosis again seen. IMPRESSION: No pneumothorax after placement of second right-sided chest tube. Low lung volumes and ca rdiomegaly with chronic reticulonodular parenchymal opacities bilaterally redemonstrated. Right-sided volume loss redemonstrated after partial pneumonectomy. Improved aeration left lung base noted.
[2019-07-16] MEDS: IPRATROPIUM-ALBUTEROL 3 ML NEB IH SCH ×3 (15:53→19:29)
[2019-07-16] MEDS: HEPARIN SODIUM,PORCINE 5,000 UNIT/ML 1 ML VIAL SQ SCH ×2 (16:09→22:20)
--- NOTE | 2019-07-16 17:54 | P.CNPUL ---
History of Present Illness Consult date: 07/16/19 Chief complaint: Lung cancer post thoracotomy and right upper lobe resection History of present illness: This is a pleasant 69-year-old female patient with a right upper lobe mass with a biopsy confirmed adenocarcinoma indicating stage I A disease. The patient came in and she underwent a right upper lobe resection. This was a robotic- assisted thoracoscopy with right upper lobectomy with mediastinal lymph node dissection and currently the patient is postop day #0. Estimated blood loss was only 20 mL. Postop chest x-ray shows no evidence of any pneumothorax after placement of the second chest tube. There are low lung volumes and cardi omegaly. Note that a second chest was inserted as the patient had a 5% pneumothorax despite the initial chest being present in the right hemithorax. There was some right-sided volume loss with some mediastinal shift post pneumonectomy. Note that the patient has underlying COPD , Preop FEV1 is normal to 1.87 L 78% of predicted, diffusion capacity was in the order of 59% of predicted. She has history of metabolic disease and hypertension in addition. The patient is a chronic smoker in she was trying to cut down her smoking preoperatively.. Review of Systems Constitutional: Reports as per HPI Eyes: denies as per HPI, denies blurred vision, denies bulging eye, denies decreased vision, denies diplopia, denies discharge, denies dry eye, denies irritation, denies itching, denies pain, denies photophobia, denies loss of peripheral vision, denies loss of vision, denies tunnel vision/blind spots Ears: deny: decreased hearing, ear discharge, earache, tinnitus Ears, nose, mouth and throat: Reports as per HPI Breasts: absent: as per HPI, change in shape, gynecomastia, masses, nipple discharge, pain, skin changes, swelling Cardiovascular: Reports as per HPI Respiratory: Reports as per HPI, Reports cough, Reports dyspnea Gastrointestinal: Reports as per HPI Genitourinary: Reports as per HPI Menstruation: Reports as per HPI Musculoskeletal: Reports as per HPI Musculoskeletal: absent: ankle pain, ankle stiffness, ankle swelling, as per HPI, elbow pain, elbow stiffness, elbow swelling, foot pain, foot stiffness, foot swelling, hand pain, hand stiffness, hand swelling, hip pain, hip stiffness, hip swelling, knee pain, knee stiffness, knee swelling, shoulder pain, shoulder stiffness, shoulder swelling, wrist pain, wrist stiffness, wrist swelling Integumentary: Reports as per HPI Neurological: Reports as per HPI Psychiatric: Reports as per HPI Endocrine: Reports as per HPI Hematologic/Lymphatic: Reports as per HPI Allergic/Immunologic: Reports as per HPI Past Medical History Past Medical History: Cancer, COPD, Hyperlipidemia, Thyroid Disorder Additional Past Medical History / Comment(s): COPD, stage IA non-small cell lung cancer, history of Graves' disease with previous thyroidectomy, inflammatory bowel disease, history of abnormal environmental ALLERGIES History of Any Multi-Drug Resistant Organisms: None Reported Past Surgical History: Tonsillectomy, Tubal Ligation Additional Past Surgical History / Comment(s): partial THYROIDECTOMY Past Anesthesia/Blood Transfusion Reactions: No Reported Reaction, Family History of Problems w/ Anesthesia Additional Past Anesthesia/Blood Transfusion Reaction / Comment(s): SISTER = PONV Smoking Status: Former smoker - Past Family History Mother Family Medical History: Cancer Additional Family Medical History / Comment(s): UTERINE CA Father Family Medical History: Cancer Additional Family Medical History / Comment(s): MULTIPLE MYELOMA Medications and Allergies Home Medications Medication Instructions Recorded Confirmed Type ALPRAZolam [Xanax] 0.75 mg PO HS PRN 10/10/15 07/14/19 History Atenolol [Tenormin] 50 mg PO HS 10/10/15 07/14/19 History Imipramine HCl [Tofranil] 100 mg PO HS 10/10/15 07/14/19 History Montelukast [Singulair] 10 mg PO HS 10/10/15 07/14/19 History Albuterol Sulfate [Ventolin HFA] 1 - 2 puff INHALATION Q6H PRN 06/10/19 07/14/19 History Atorvastatin [Lipitor] 10 mg PO HS 06/10/19 07/14/19 History Ibuprofen 400 mg PO Q8H PRN 06/10/19 07/14/19 History Entyvio IV Q60D 07/14/19 History Allergies Allergy/AdvReac Type Severity Reaction Status Date / Time Penicillins Allergy Unknown Rash/Hives Verified 07/16/19 06:30 metronidazole [From Flagyl] Allergy Rash/Hives Verified 07/16/19 06:30 Physical Exam Vitals: Vital Signs Temp Pulse Pulse Pulse Resp BP Pulse Ox 07/16/19 16:05 87 07/16/19 15:55 87 07/16/19 14:20 96.9 F L 99 16 124/72 89 L 07/16/19 13:15 86 16 102/56 95 07/16/19 12:45 86 16 104/57 95 07/16/19 12:30 93 16 108/57 94 L 07/16/19 12:15 87 16 105/59 93 L 07/16/19 12:01 85 16 104/55 95 07/16/19 11:45 86 16 106/55 96 07/16/19 11:21 86 16 109/57 97 07/16/19 11:06 88 16 114/58 96 07/16/19 10:51 97.2 F L 87 16 106/58 95 07/16/19 06:27 98.8 F 83 16 125/75 98 Intake and Output 07/16/19 07/16/19 07/16/19 06:59 14:59 22:59 Intake Total 200 3200 Output Total 870 Balance 200 2330 Intake: IV 200 1700 Intake, IV Titration 1500 Amount Lactated Ringers 1,000 ml 1500 @ 0 mls/hr IV [facility][id number] Output: Urine 850 Estimated Blood Loss 20 Other: Weight 81.6 kg Gen. appearance, comfortable likely distress Head exam was generally normal. There was no scleral icterus or corneal arcus. Mucous membranes were moist. Neck was supple and without jugular venous distension, thyromegaly, or carotid bruits. Carotids were easily palpable bilaterally. There was no adenopathy. Lungs sounds are diminished on the right compared to the left and the patient is to right-sided chest tube in place with some occasional leaks, output from the chest tube is minimal at this point in time. Cardiac exam revealed the PMI to be normally situated and sized. The rhythm was regular and no extrasystoles were noted during several minutes of auscultation. The first and second heart sounds were normal and physiologic splitting of the second heart sound was noted. There were no murmurs, rubs, clicks, or gallops. Abdominal exam revealed normal bowel sounds. The abdomen was soft, non-tender, and without masses, organomegaly, or appreciable enlargement of the Examination of the extremities revealed easily palpable radial, femoral and pedal pulses. There was no cyanosis, clubbing or edema. Examination of the skin revealed no evidence of significant rashes, suspicious appearing nevi or other concerning lesions. Neurologically the patient is awake and alert and there is no focal neurological deficit. Results - Diagnostic Findings Chest x-ray: image reviewed Assessment and Plan Plan: 1 non-small cell lung cancer with a right upper lobe mass and the patient is post robotic-assisted right upper lobe resection for an early stage I non-small cell lung cancer. The patient also had lymph node dissection. Currently the patient's postop day #0. 2 tiny right apical pneumothorax and the patient has to chest tubes in place with a minimal amount of air leak 3 COPD with a preop FEV1 of 76% of predicted 4 history of smoking 5 history of inflammatory bowel disease 6 history of Graves' disease with partial thyroidectomy Plan Encouraged use of incentive spirometer Monitor the output from the chest tube Monitor the air leak Daily chest x-rays DuoNeb nebulized treatments around the clock Early mobility. Tramadol for pain control in addition to Toradol. We'll continue to follow
[2019-07-16] MEDS: ATENOLOL 50 MG TAB PO SCH (20:05)
[2019-07-16] MEDS: ATORVASTATIN 10 MG TAB PO SCH (20:06)
[2019-07-16] MEDS: IMIPRAMINE 25 MG TAB PO SCH (20:06)
[2019-07-16] MEDS: MONTELUKAST 10 MG TAB PO SCH (20:06)
[2019-07-16] MEDS: ALPRAZolam 0.25 MG TAB PO PRN (22:18)
[2019-07-17] MEDS: traMADol 50 MG TAB PO SCH ×4 (05:52→22:49)
[2019-07-17] MEDS: KETOROLAC 30 MG/ML 1 ML VIAL IVP SCH ×4 (05:52→22:49)
[2019-07-17] MEDS: PANTOPRAZOLE 40 MG TABLET PO SCH (05:53)
[2019-07-17 07:45] LABS: African American GFR (CKD) >90 (>60 ml/min/1.73 sqM); Anion Gap 6 mmol/L; Blood Urea Nitrogen 13 mg/dL (7-17); Calcium 8.5 mg/dL (8.4-10.2); Carbon Dioxide 28 mmol/L (22-30); Chloride 97 mmol/L (98-107); Glucose 120 mg/dL (74-99); Non-African American GFR(CKD) 87 (>60 ml/min/1.73 sqM); Potassium 4.3 mmol/L (3.5-5.1); Sodium 131 mmol/L (137-145)
[2019-07-17 07:50] LABS: Basophils % (A) 0 %; Eosinophils # (A) 0.2 k/uL (0-0.7); Eosinophils % (A) 2 %; HCT 40.4 % (34.0-46.0); HGB 13.4 gm/dL (11.4-16.0); Lymphocytes # (A) 2.8 k/uL (1.0-4.8); Lymphocytes % (A) 25 %; MCH 29.3 pg (25.0-35.0); MCHC 33.1 g/dL (31.0-37.0); MCV 88.5 fL (80.0-100.0); Mean Platelet Volume 7.8; Monocytes # (A) 0.6 k/uL (0-1.0); Monocytes % (A) 5 %; Neutrophils # (A) 7.3 k/uL (1.3-7.7); Neutrophils % (A) 66 %; Platelet Count 360 k/uL (150-450); RBC 4.56 m/uL (3.80-5.40); RDW 13.2 % (11.5-15.5); WBC 11.1 k/uL (3.8-10.6)
--- NOTE | 2019-07-17 08:18 | XR ---
EXAMINATION TYPE: XR chest 1V portable DATE OF EXAM: 07/17/2019 COMPARISON: Prior chest 07/16/2019 HISTORY: Status post lobectomy TECHNIQUE: Single frontal view of the chest is obtained. FINDINGS: Right-sided chest tube remains in place. No sizable pneumothorax. Patchy density persists in the right mid lung. No evident pleural effusion. Lung volumes are low. Heart size is stable. Aorta is dense. There are overlying cardiac leads. IMPRESSION: Essentially stable postoperative chest findings. Expiratory rotated exam.
[2019-07-17] MEDS: IPRATROPIUM-ALBUTEROL 3 ML NEB IH SCH ×4 (08:21→19:42)
[2019-07-17] MEDS: HEPARIN SODIUM,PORCINE 5,000 UNIT/ML 1 ML VIAL SQ SCH ×3 (08:49→22:49)
--- NOTE | 2019-07-17 13:14 | P.PN ---
Subjective Progress Note Date: 07/17/19 Principal diagnosis: Adenocarcinoma right upper lobe of lung. Past medical history significant for hypertension, hyperlipidemia, inflammatory bowel disease, Graves' disease with p artial thyroidectomy, history of smoking and chronic obstructive pulmonary disease with a preoperative FEV1 76% predicted value. POD #1 Robotic-assisted thoracoscopic right upper lobectomy with mediastinal lymph node dissection. The patient is currently sitting up to the bedside chair on the cardiac stepdown unit. She is in no acute distress. Currently he is complaining of some surgical type pain to her right chest tube insertion site. Denies any complaints of shortness of breath. Oxygen saturations are 92% on room air and she is achieving 750 mL on her incentive spirometry with encouragement. Right pleural chest tube remains in place to water seal. No air leak is present. 50 mL output in the last 8 hours, 170 mL output since surgery. She remains afebrile last 24 hours. Remote telemetry showing normal sinus rhythm heart rate 86. Objective - Vital Signs Vital signs: Vital Signs Temp 98.6 F 07/17/19 03:59 Pulse 90 07/17/19 08:34 Resp 20 07/17/19 03:59 BP 103/56 07/17/19 03:59 Pulse Ox 91 L 07/17/19 03:59 Intake & Output 07/16/19 07/17/19 07/17/19 18:59 06:59 18:59 Intake Total 3380 530 0 Output Total 870 540 Balance 2510 -10 0 Weight 83.9 kg Intake: IV 1700 Intake, IV Titration 1500 170 Amount Dextrose 5%-0.45% NaCl 1, 120 000 ml @ 40 mls/hr IV . Q24H [facility] Rx#:[id number] Lactated Ringers 1,000 ml 1500 @ 0 mls/hr IV .[facility] Rx#:[id number] ceFAZolin 2 gm In Sodium 50 Chloride 0.9% 50 ml @ 100 mls/hr IVPB Q8HR [facility] Rx# :[id number] Oral 180 360 0 Output: Chest Tube Drainage 50 Chest Tube Right 50 Drainage 65 Right Chest 65 Urine 850 425 Estimated Blood Loss 20 Other: Voiding Method Indwelling Catheter Toilet # Voids 2 - Constitutional General appearance: Present: cooperative, no acute distress, obese - Respiratory Details: Lung sounds with few scattered rhonchi throughout, right greater than left. R espirations are symmetrical and nonlabored. Oxygen saturation are 92% on room air and she is achieving 750 mL on her incentive spirometry. Right pleural chest tube remains in place to water seal. No air leak is present. 50 mL of thin serosanguineous drainage output in the last 8 hours and 170 mL output in the last 24 hours. - Cardiovascular Details: Regular rhythm and rate. S1 and S2 present, negative for S3, gallop or murmur. No edema present. Knee-high sequential compression devices in place to bilateral lower extremities. - Gastrointestinal Gastrointestinal Comment(s): Abdomen is soft, nontender and nondistended. Active bowel sounds present in all 4 abdominal quadrants. No guarding or rigidity. No organomegaly appreciated. Tolerating oral intake. - Genitourinary Genitourinary Comment(s): Voiding clear leonora urine. - Integumentary Integumentary Comment(s): Skin is warm and dry. No clubbing or cyanosis is present. Right chest incision sites clean, dry and intact. - Neurologic Neurologic: Present: CNII-XII intact - Musculoskeletal Musculoskeletal: Present: gait normal, strength equal bilaterally - Psychiatric Psychiatric: Present: A&O x's 3, appropriate affect, intact judgment & insight - Allied health notes Allied health notes reviewed: nursing - Labs CBC & Chem 7: 07/17/19 06:46 07/17/19 06:46 Labs: Abnormal Lab Results - Last 24 Hours (Table) 07/17/19 07/17/19 Range/Units 06:46 06:46 WBC 11.1 H (3.8-10.6) k/uL Sodium 131 L (137-145) mmol/L Chloride 97 L (98-107) mmol/L Glucose 120 H (74-99) mg/dL - Imaging and Cardiology Chest x-ray: report reviewed, image reviewed Assessment and Plan Assessment: 1. Adenocarcinoma right upper lobe of lung, s/p robotic assisted thoracoscopic lobectomy 2. Hypertension 3. Hyperlipidemia 4. Inflammatory bowel disease 5. Graves disease, s/p partial thyroidectomy 6. Previous tobacco dependence 7. COPD with preoperative FEV1 76% of predicted Plan: 1. Continue right pleural chest tube to water seal for another 24 hours. Monitor for resolution of air leak. 2. Will review daily x-rays. 3. Encourage incentive spirometry 10 times every hour while awake. 4. Increase activity, encourage ambulation 5. Bronchodilators per pulmonology 6. GI/DVT prophylaxis 7. Pain control with current medication regimen 8. More recommendations to follow Time with Patient: Greater than 30
--- NOTE | 2019-07-17 14:43 | P.PN ---
Subjective Progress Note Date: 07/17/19 This is a pleasant 69-year-old female patient with a right upper lobe mass with a biopsy confirmed adenocarcinoma indicating stage I A disease. The patient came in and she underwent a right upper lobe resection. This was a robotic- assisted thoracoscopy with right upper lobectomy with mediastinal lymph node dissection and currently the patient is postop day #0. Estimated blood loss was only 20 mL. Postop chest x-ray shows no evidence of any pneumothorax after placement of the second chest tube. There are low lung volumes and cardiomegaly. Note that a second chest was inserted as the patient had a 5% pneumothorax despite the initial chest being present in the right hemithorax. There was some right-sided volume loss with some mediastinal shift post pneumonectomy. Note that the patient has underlying COPD , Preop FEV1 is normal to 1.87 L 78% of predicted, diffusion capacity was in the order of 59% of predicted. She has history of metabolic disease and hypertension in addition. The patient is a chronic smoker in she was trying to cut down her smoking preoperatively.. On today's evaluation of 07/17/2019 the patient is postop day #1. The patient is doing well. The patient has no specific complaints. She is on room air oxygen. The right-sided chest tube in place total amount of output has been 50 mL over the past 8 hour. No evidence of any air leak. Chest x-ray shows no evidence of any pneumothorax. No evidence of any significant subcutaneous e mphysema. No hemoptysis. No pleurisy. No chest pain. No other complaints otherwise for now. No altered mentation. Blood work will from today was adequate and the patient is utilizing the incentive spirometer. Objective - Vital Signs Vital signs: Vital Signs Temp 96.9 F L 07/17/19 12:00 Pulse 76 07/17/19 12:00 Resp 18 07/17/19 12:00 BP 113/57 07/17/19 12:00 Pulse Ox 92 L 07/17/19 12:00 Intake & Output 07/16/19 07/17/19 07/17/19 18:59 06:59 18:59 Intake Total 3380 530 1165 Output Total 870 540 Balance 2510 -10 1165 Weight 83.9 kg Intake: IV 1700 Intake, IV Titration 1500 170 Amount Dextrose 5%-0.45% NaCl 1, 120 000 ml @ 40 mls/hr IV . [facility] Rx#:[id number] Lactated Ringers 1,000 ml 1500 @ 0 mls/hr IV .[facility] Rx#:[id number] ceFAZolin 2 gm In Sodium 50 Chloride 0.9% 50 ml @ 100 mls/hr IVPB Q8HR [facility] Rx# :[id number] Oral 243 [id number] Output: Chest Tube Drainage 50 Chest Tube Right 50 Drainage 65 Right Chest 65 Urine 850 425 Estimated Blood Loss 20 Other: Voiding Method Indwelling Catheter Toilet # Voids 2 2 - Exam Gen. appearance, comfortable likely distress Head exam was generally normal. There was no scleral icterus or corneal arcus. Mucous membranes were moist. Neck was supple and without jugular venous distension, thyromegaly, or carotid bruits. Carotids were easily palpable bilaterally. There was no adenopathy. Lungs sounds are diminished on the right compared to the left and the patient is to right-sided chest tube in place with some occasional leaks, output from the chest tube is minimal at this point in time. Cardiac exam revealed the PMI to be normally situated and sized. The rhythm was regular and no extrasystoles were noted during several minutes of auscultation. The first and second heart sounds were normal and physiologic splitting of the second heart sound was noted. There were no murmurs, rubs, clicks, or gallops. Abdominal exam revealed normal bowel sounds. The abdomen was soft, non-tender, and without masses, organomegaly, or appreciable enlargement of the Examination of the extremities revealed easily palpable radial, femoral and pedal pulses. There was no cyanosis, clubbing or edema. Examination of the skin revealed no evidence of significant rashes, suspicious appearing nevi or other concerning lesions. Neurologically the patient is awake and alert and there is no focal neurological deficit. - Labs CBC & Chem 7: 07/17/19 06:46 07/17/19 06:46 Labs: Abnormal Lab Results - Last 24 Hours (Table) 07/17/19 07/17/19 Range/Units 06:46 06:46 WBC 11.1 H (3.8-10.6) k/uL Sodium 131 L (137-145) mmol/L Chloride 97 L (98-107) mmol/L Glucose 120 H (74-99) mg/dL Assessment and Plan Plan: 1 non-small cell lung cancer with a right upper lobe mass and the patient is post robotic-assisted right upper lobe resection for an early stage I non-small cell lung cancer. The patient also had lymph node dissection. Currently the patient's postop day #1 2 tiny right apical pneumothorax recovered and on today's evaluation there is no evidence of any air leak and the right lung is well expanded. 3 COPD with a preop FEV1 of 76% of predicted 4 history of smoking 5 history of inflammatory bowel disease 6 history of Graves' disease with partial thyroidectomy Plan Encouraged use of incentive spirometer Monitor the output from the chest tube Monitor the air leak Daily chest x-rays DuoNeb nebulized treatments around the clock Early mobility. Tramadol for pain control in addition to Toradol. Blood work was reviewed. The patient is hemodynamically stable. No other significant events overnight. Hemoglobin is at 13.4. Possibly remove the chest tube with the next 24-48 hours. We'll coordinate with the thoracic surgeon. We'll continue to follow
[2019-07-17] MEDS: ATENOLOL 50 MG TAB PO SCH (20:17)
[2019-07-17] MEDS: IMIPRAMINE 25 MG TAB PO SCH (20:17)
[2019-07-17] MEDS: ATORVASTATIN 10 MG TAB PO SCH (20:17)
[2019-07-17] MEDS: MONTELUKAST 10 MG TAB PO SCH (20:17)
[2019-07-17] MEDS: ALPRAZolam 0.25 MG TAB PO PRN (22:50)
[2019-07-18] MEDS: KETOROLAC 30 MG/ML 1 ML VIAL IVP SCH ×4 (06:16→19:20)
[2019-07-18 06:18] LABS: HCT 38.5 % (34.0-46.0); HGB 12.6 gm/dL (11.4-16.0); MCH 28.8 pg (25.0-35.0); MCHC 32.7 g/dL (31.0-37.0); Mean Platelet Volume 7.6; Platelet Count 336 k/uL (150-450); RBC 4.38 m/uL (3.80-5.40); RDW 13.1 % (11.5-15.5); WBC 10.6 k/uL (3.8-10.6)
[2019-07-18] MEDS: PANTOPRAZOLE 40 MG TABLET PO SCH (06:18)
[2019-07-18 06:31] LABS: African American GFR (CKD) >90 (>60 ml/min/1.73 sqM); Anion Gap 5 mmol/L; Blood Urea Nitrogen 12 mg/dL (7-17); Calcium 8.6 mg/dL (8.4-10.2); Carbon Dioxide 28 mmol/L (22-30); Chloride 97 mmol/L (98-107); Glucose 93 mg/dL (74-99); Non-African American GFR(CKD) >90 (>60 ml/min/1.73 sqM); Potassium 3.9 mmol/L (3.5-5.1); Sodium 130 mmol/L (137-145)
[2019-07-18] MEDS: IPRATROPIUM-ALBUTEROL 3 ML NEB IH SCH ×4 (08:04→19:22)
--- NOTE | 2019-07-18 08:17 | XR ---
EXAMINATION TYPE: XR chest 2V DATE OF EXAM: 07/18/2019 COMPARISON: 07/17/2019 HISTORY: Right upper lobectomy. Follow-up exam. TECHNIQUE: Frontal and lateral views of the chest are obtained. FINDINGS: Either linear skinfolds or pneumothorax overlying the right hemithorax although lung adolfo ngs are seen beyond the curvilinear densities and therefore skin folds are favored. Right thoracostom y tube remains in a similar position. Diffuse interstitial prominence is seen throughout. Cardia medi astinal silhouette is enlarged. There is diffuse osseous demineralization. Subcutaneous emphysema ove r the right lateral chest wall. IMPRESSION: Possible right apical pneumothorax versus skin folds. Repeat exam is recommended. A Yellow level critical message alert has been initiated for Guillermo Nair via the [employer] Critical Results System on 07/18/2019 8:14 AM. This message alert has been sent to Guillermo Nair via the preferences provided by the clinician for the receipt of Radiology Critical Findings. Message ID [id number].
[2019-07-18 09:54] VITALS: RESP 16
[2019-07-18] MEDS: traMADol 50 MG TAB PO SCH ×2 (12:09→12:25)
[2019-07-18] MEDS: HEPARIN SODIUM,PORCINE 5,000 UNIT/ML 1 ML VIAL SQ SCH ×2 (12:10→16:40)
--- NOTE | 2019-07-18 13:29 | P.PN ---
Subjective Progress Note Date: 07/18/19 Principal diagnosis: Adenocarcinoma right upper lobe of lung. Past medical history significant for hypertension, hyperlipidemia, inflammatory bowel disease, Graves' disease with p artial thyroidectomy, history of smoking and chronic obstructive pulmonary disease with a preoperative FEV1 76% predicted value. POD #2 Robotic-assisted thoracoscopic right upper lobectomy with mediastinal lymph node dissection. The patient is currently sitting up to the bedside chair on the cardiac stepdown unit. She is in no acute distress. She is complaining of pain with coughing to her chest tube insertion site, denies any complaints of shortness of breath. Oxygen saturations are 93% on room air and she is achieving 750 mL on her incentive spirometry. Her right pleural chest tube remains in place to water seal. No air leak is present. Draining thin serosanguineous drainage with 40 mL of output in the last 8 hours and 170 mL output in the last 24 hours. She reports she has been ambulated in the cardiac stepdown unit hallway with minimal assistance. She has been afebrile the last 24 hours. Surgical pathology results remain pending. Objective - Vital Signs Vital signs: Vital Signs Temp 98.3 F 07/18/19 04:00 Pulse 79 07/18/19 04:00 Resp 20 07/18/19 04:00 BP 104/66 07/18/19 04:00 Pulse Ox 93 L 07/18/19 04:00 Intake & Output 07/17/19 07/18/19 07/18/19 18:59 06:59 18:59 Intake Total 1925 Output Total 80 40 Balance 1845 -40 Weight 84.1 kg Intake: Oral 1924 Output: Chest Tube Drainage 40 Chest Tube Right 40 Drainage 80 Right Chest 80 Other: Voiding Method Toilet Toilet # Voids 2 1 - Constitutional General appearance: Present: cooperative, no acute distress, obese - Respiratory Details: Lung sounds are diminished throughout right greater than left, few scattered crackles to her right lower lobe. Respirations are symmetrical and nonlabored. Oxygen saturation is 93% on room air and she is achieving 750 mL on her incentive spirometry. Right pleural chest tube remains in place to water seal. No air leak is present. Draining thin serosanguineous drainage with 40 mL output in the last 8 hours, and 170 mL output in the last 24 hours. - Cardiovascular Details: Regular rhythm and rate. S1 and S2 present, negative for S3, gallop or murmur. No edema present. Knee-high sequential compression devices in place to bilateral lower extremities. - Gastrointestinal Gastrointestinal Comment(s): Abdomen is soft, nontender and nondistended. Active bowel sounds present in all 4 abdominal quadrants. No guarding or rigidity. Passing flatus. Tolerating oral intake. - Genitourinary Genitourinary Comment(s): Continues to void clear leonora urine. - Integumentary Integumentary Comment(s): Skin is warm and dry. No clubbing or cyanosis is present. Right chest incisions clean, dry and intact. Dressings clean and dry. - Neurologic Neurologic Comment(s): No neurological deficits. Neurologic: Present: CNII-XII intact - Musculoskeletal Musculoskeletal: Present: gait normal, generalized weakness, strength equal bilaterally - Psychiatric Psychiatric: Present: A&O x's 3, appropriate affect, intact judgment & insight - Allied health notes Allied health notes reviewed: nursing - Labs CBC & Chem 7: 07/18/19 05:58 07/18/19 05:58 Labs: Abnormal Lab Results - Last 24 Hours (Table) 07/18/19 Range/Units 05:58 Sodium 130 L (137-145) mmol/L Chloride 97 L (98-107) mmol/L - Imaging and Cardiology Chest x-ray: image reviewed Assessment and Plan Assessment: 1. Adenocarcinoma right upper lobe of lung, s/p robotic assisted thoracoscopic lobectomy 2. Hypertension 3. Hyperlipidemia 4. Inflammatory bowel disease 5. Graves disease, s/p partial thyroidectomy 6. Previous tobacco dependence 7. COPD with preoperative FEV1 76% of predicted Plan: 1. Remove right pleural chest tube. 2. Chest x-ray in the morning. If stable, will dc to home tomorrow 3. Encourage incentive spirometry 10 times every hour while awake. 4. Increase activity, encourage ambulation as tolerated. 5. Bronchodilators per pulmonology management. 6. Continue GI/DVT prophylaxis. 7. Pain control with current medication regimen. 8. Encourage continued smoking cessation. 9. Continue to follow up on surgical pathology results. 10. More recommendations to follow based on patient's clinical course. Time with Patient: Greater than 30
[2019-07-18] MEDS ORDERED: traMADol 50 MG TAB PO PRN (14:22)
--- NOTE | 2019-07-18 16:17 | P.PN ---
Subjective Progress Note Date: 07/18/19 Principal diagnosis: Adenocarcinoma of the right upper lobe, status post robotic-assisted thoracoscopic lobectomy This is a pleasant 69-year-old female patient with a right upper lobe mass with a biopsy confirmed adenocarcinoma indicating stage I A disease. The patient came in and she underwent a right upper lobe resection. This was a robotic- assisted thoracoscopy with right upper lobectomy with mediastinal lymph node dissection and currently the patient is postop day #0. Estimated blood loss was only 20 mL. Postop chest x-ray shows no evidence of any pneumothorax after placement of the second chest tube. There are low lung volumes and cardiomegaly. Note that a second chest was inserted as the patient had a 5% pneumothorax despite the initial chest being present in the right hemithorax. There was some right-sided volume loss with some mediastinal shift post pn eumonectomy. Note that the patient has underlying COPD , Preop FEV1 is normal to 1.87 L 78% of predicted, diffusion capacity was in the order of 59% of predicted. She has history of metabolic disease and hypertension in addition. The patient is a chronic smoker in she was trying to cut down her smoking preoperatively.. On today's evaluation of 07/17/2019 the patient is postop day #1. The patient is doing well. The patient has no specific complaints. She is on room air oxygen. The right-sided chest tube in place total amount of output has been 50 mL over the past 8 hour. No evidence of any air leak. Chest x-ray shows no evidence of any pneumothorax. No evidence of any significant subcutaneous emphysema. No hemoptysis. No pleurisy. No chest pain. No other complaints otherwise for now. No altered mentation. Blood work will from today was adequate and the patient is utilizing the incentive spirometer. The patient was seen today 07/18/2019 in follow-up on the selective care unit. This is postoperative day #2 of a robotic-assisted thoracoscopic right upper lobectomy with mediastinal lymph node dissection. Chest x-ray reviewed. Chest tube remains in place. She is working well with the incentive spirometer. White count 10.6. Hemoglobin 12.6. Creatinine 0.63. Objective - Vital Signs Vital signs: Vital Signs Temp 97.9 F 07/18/19 09:54 Pulse 88 07/18/19 16:01 Resp 16 07/18/19 16:01 BP 122/57 07/18/19 11:45 Pulse Ox 94 L 07/18/19 11:45 Intake & Output 07/17/19 07/18/19 07/18/19 18:59 06:59 18:59 Intake Total 1925 180 Output Total 80 40 600 Balance 1845 -40 -420 Weight 84.1 kg Intake: Oral 1924 180 Output: Chest Tube Drainage 40 Chest Tube Right 40 Drainage 80 Right Chest 80 Urine 600 Other: Voiding Method Toilet Toilet Toilet # Voids 2 1 1 - Exam GENERAL EXAM: Alert, pleasant 69-year-old female patient, comfortable in no apparent distress. HEAD: Normocephalic. EYES: Normal reaction of pupils, equal size. NOSE: Clear with pink turbinates. THROAT: No erythema or exudates. NECK: No masses, no JVD. CHEST: No chest wall deformity. LUNGS: Equal air entry with crackles in the right posterior base, diminished CVS: S1 and S2 normal with no audible murmur, regular rhythm. ABDOMEN: No hepatosplenomegaly, normal bowel sounds, no guarding or rigidity. SPINE: No scoliosis or deformity SKIN: No rashes CENTRAL NERVOUS SYSTEM: No focal deficits, tone is normal in all 4 extremities. EXTREMITIES: There is no peripheral edema. No clubbing, no cyanosis. Pe ripheral pulses are intact. - Labs CBC & Chem 7: 07/18/19 05:58 07/18/19 05:58 Labs: Abnormal Lab Results - Last 24 Hours (Table) 07/18/19 Range/Units 05:58 Sodium 130 L (137-145) mmol/L Chloride 97 L (98-107) mmol/L Assessment and Plan Assessment: 1 non-small cell lung cancer with a right upper lobe mass and the patient is post robotic-assisted right upper lobe resection for an early stage I non-small cell lung cancer. The patient also had lymph node dissection. Currently the patient's postop day #2 2 tiny right apical pneumothorax recovered and on today's evaluation there is no evidence of any air leak and the right lung is well expanded. 3 COPD with a preop FEV1 of 76% of predicted 4 history of smoking 5 history of inflammatory bowel disease 6 history of Graves' disease with partial thyroidectomy Plan Seen and evaluated by Dr. Nair X-ray reviewed Chest tube remains in place Encourage increased use the incentive spirometer Increase activity as tolerated We'll continue to follow I, the cosigning physician, performed a history & physical examination of the patient. Lungs sounds crackles in the right posterior base, diminished. Maintaining good O2 saturations in the 90s on room air. I discussed the assessment and plan of care with my nurse practitioner, Monica Armijo. I attest to the above note as dictated by her.
[2019-07-18] MEDS: ATORVASTATIN 10 MG TAB PO SCH (20:13)
[2019-07-18] MEDS: MONTELUKAST 10 MG TAB PO SCH (20:13)
[2019-07-18] MEDS: ATENOLOL 50 MG TAB PO SCH (20:13)
[2019-07-18] MEDS: IMIPRAMINE 25 MG TAB PO SCH (20:17)
[2019-07-19] MEDS: KETOROLAC 30 MG/ML 1 ML VIAL IVP SCH ×2 (01:17→06:45)
[2019-07-19] MEDS: HEPARIN SODIUM,PORCINE 5,000 UNIT/ML 1 ML VIAL SQ SCH ×2 (01:17→08:12)
[2019-07-19] MEDS: ALPRAZolam 0.25 MG TAB PO PRN (01:17)
[2019-07-19] MEDS: PANTOPRAZOLE 40 MG TABLET PO SCH (06:45)
--- NOTE | 2019-07-19 07:51 | XR ---
EXAMINATION TYPE: XR chest 2V DATE OF EXAM: 07/19/2019 COMPARISON: 07/18/2019 TECHNIQUE: PA and lateral views submitted. HISTORY: Post lobectomy FINDINGS: Coarsened interstitium. Chest tube is been removed. There is no evidence of pneumothorax. Heart size normal. Right perihilar consolidation is stable. Small amount of subcutaneous emphysema on the right. Atherosclerotic change aorta. Hypertrophic and degenerative change the spine with small effusions. IMPRESSION: 1. Diffuse interstitial pattern with associated with chronic interstitial lung disease. Superimposed interstitial pneumonitis or venous congestion in the differential. 2. Right hilar consolidation stable.
[2019-07-19 08:14] VITALS: BP 118/62; PULSE 80; TEMP 98.2
[2019-07-19] MEDS: IPRATROPIUM-ALBUTEROL 3 ML NEB IH SCH ×2 (08:20→11:35)
--- NOTE | 2019-07-19 09:06 | P.PN ---
Subjective Progress Note Date: 07/19/19 Principal diagnosis: Adenocarcinoma right upper lobe of lung. Previous medical history of hypertension, hyperlipidemia, inflammatory bowel disease, Graves' disease with partial thyroidectomy, previous tobacco dependence and chronic obstructive pulmonary disease with a preoperative FEV1 76% predicted value. POD #3 Robotic-assisted thoracoscopic right upper lobectomy with mediastinal lymph node dissection. The patient is currently ambulating in her room in no acute distress. States pain is well controlled on current medication regimen without narcotics. Denies shortness of breath. Right pleural chest tube discontinued yesterday without incident, chest x-ray this morning stable. No new concerns. Objective - Vital Signs Vital signs: Vital Signs Temp 98.2 F 07/19/19 08:00 Pulse 80 07/19/19 08:00 Resp 16 07/19/19 08:00 BP 118/62 07/19/19 08:00 Pulse Ox 96 07/19/19 08:00 Intake & Output 07/18/19 07/19/19 07/19/19 18:59 06:59 18:59 Intake Total 180 240 Output Total 600 Balance -420 240 Weight 84.4 kg Intake: Oral 180 240 Output: Urine 600 Other: Voiding Method Toilet Toilet # Voids 2 1 # Bowel Movements 1 - Constitutional General appearance: Present: cooperative, no acute distress - Respiratory Details: Lung sounds diminished bilaterally. Respirations even, nonlabored. Currently on room air with oxygen saturation 97%. Able to achieve 1000 mL on her incentive spirometry. Strong cough. - Cardiovascular Details: S1, S2 present. Regular rate and rhythm, sinus rhythm on telemetry. Palpable peripheral pulses bilaterally. No edema present. No calf pain or tenderness noted. - Gastrointestinal Gastrointestinal Comment(s): Abdomen soft, nontender, nondistended. Bowel sounds present 4 quadrants. Tolerating diet. - Genitourinary Genitourinary Comment(s): Continues to void clear, yellow urine - Integumentary Integumentary Comment(s): Skin is warm and dry with evidence of good perfusion. Right lateral chest tube site covered with dry intact dressing - Neurologic Neurologic: Present: CNII-XII intact - Musculoskeletal Musculoskeletal: Present: gait normal, strength equal bilaterally - Psychiatric Psychiatric: Present: A&O x's 3, appropriate affect, intact judgment & insight - Allied health notes Allied health notes reviewed: nursing - Labs CBC & Chem 7: 07/18/19 05:58 07/18/19 05:58 - Imaging and Cardiology Chest x-ray: report reviewed, image reviewed Assessment and Plan Assessment: 1. Adenocarcinoma right upper lobe of lung, s/p robotic assisted thoracoscopic lobectomy 2. Hypertension 3. Hyperlipidemia 4. Inflammatory bowel disease 5. Graves disease, s/p partial thyroidectomy 6. Previous tobacco dependence 7. COPD with preoperative FEV1 76% of predicted Plan: 1. Encourage incentive spirometry 10 times every hour while awake. 2. Increase activity, encourage ambulation 3. Bronchodilators per pulmonology management. 4. Pain control with current medication regimen. 5. Encourage continued smoking cessation. 6. Continue to follow up on surgical pathology results. 7. Will discharge to home today. We will call patient brought with follow-up appointments. Verbal discharge instructions have been given to the patient. Our contact information was given for any questions or concerns Time with Patient: Greater than 30
--- NOTE | 2019-07-19 11:43 | P.PN ---
Subjective Progress Note Date: 07/19/19 This is a pleasant 69-year-old female patient with a right upper lobe mass with a biopsy confirmed adenocarcinoma indicating stage I A disease. The patient came in and she underwent a right upper lobe resection. This was a robotic- assisted thoracoscopy with right upper lobectomy with mediastinal lymph node dissection and currently the patient is postop day #0. Estimated blood loss was only 20 mL. Postop chest x-ray shows no evidence of any pneumothorax after placement of the second chest tube. There are low lung volumes and cardiomegaly. Note that a second chest was inserted as the patient had a 5% pneumothorax despite the initial chest being present in the right hemithorax. There was some right-sided volume loss with some mediastinal shift post pneumonectomy. Note that the patient has underlying COPD , Preop FEV1 is normal to 1.87 L 78% of predicted, diffusion capacity was in the order of 59% of predicted. She has history of metabolic disease and hypertension in addition. The patient is a chronic smoker in she was trying to cut down her smoking preoperatively.. On today's evaluation of 07/17/2019 the patient is postop day #1. The patient is doing well. The patient has no specific complaints. She is on room air oxygen. The right-sided chest tube in place total amount of output has been 50 mL over the past 8 hour. No evidence of any air leak. Chest x-ray shows no evidence of any pneumothorax. No evidence of any significant subcutaneous e mphysema. No hemoptysis. No pleurisy. No chest pain. No other complaints otherwise for now. No altered mentation. Blood work will from today was adequate and the patient is utilizing the incentive spirometer. On 07/18/2019 the patient is postop day #2. The chest tube was removed yesterday. The chest x-ray from today shows no evidence of any pneumothorax. The patient on room air oxygen. No chest pain. She is ambulating. No cough or sputum production. She is hemodynamically stable. Surgical incision is dry clean and intact. Objective - Vital Signs Vital signs: Vital Signs Temp 98.2 F 07/19/19 08:00 Pulse 80 07/19/19 08:00 Resp 16 07/19/19 08:00 BP 118/62 07/19/19 08:00 Pulse Ox 96 07/19/19 08:00 Intake & Output 07/18/19 07/19/19 07/19/19 18:59 06:59 18:59 Intake Total 180 240 480 Output Total 600 Balance -420 240 480 Weight 84.4 kg Intake: Oral 180 240 480 Output: Urine 600 Other: Voiding Method Toilet Toilet Toilet # Voids 2 1 1 # Bowel Movements 1 - Exam Gen. appearance, comfortable likely distress Head exam was generally normal. There was no scleral icterus or corneal arcus. Mucous membranes were moist. Neck was supple and without jugular venous distension, thyromegaly, or carotid bruits. Carotids were easily palpable bilaterally. There was no adenopathy. Lungs sounds are diminished on the right compared to the left and the patient is to right-sided chest tube has been removed and the incision is dry clean and intact. Cardiac exam revealed the PMI to be normally situated and sized. The rhythm was regular and no extrasystoles were noted during several minutes of auscultation. The first and second heart sounds were normal and physiologic splitting of the second heart sound was noted. There were no murmurs, rubs, clicks, or gallops. Abdominal exam revealed normal bowel sounds. The abdomen was soft, non-tender, and without masses, organomegaly, or appreciable enlargement of the Examination of the extremities revealed easily palpable radial, femoral and pedal pulses. There was no cyanosis, clubbing or edema. Examination of the skin revealed no evidence of significant rashes, suspicious appearing nevi or other concerning lesions. Neurologically the patient is awake and alert and there is no focal neurological deficit. - Labs CBC & Chem 7: 07/18/19 05:58 07/18/19 05:58 Assessment and Plan Plan: 1 non-small cell lung cancer with a right upper lobe mass and the patient is pos t robotic-assisted right upper lobe resection for an early stage I non-small cell lung cancer. The patient also had lymph node dissection. Currently the patient's postop day #2 2 tiny right apical pneumothorax recovered and the chest tube was removed and repeat chest x-ray shows no evidence of any pneumothorax on today's evaluation 3 COPD with a preop FEV1 of 76% of predicted 4 history of smoking 5 history of inflammatory bowel disease 6 history of Graves' disease with partial thyroidectomy Plan Encouraged use of incentive spirometer Chest tube was removed yesterday The chest x-ray from today was reviewed DuoNeb nebulized treatments around the clock Increased mobility Discharge home today to be followed up on outpatient basis to discuss Pathologic findings and further treatment plan.
--- NOTE | 2019-07-19 12:23 | P.DS ---
Providers Date of admission: 07/16/19 06:00 Expected date of discharge: 07/19/19 Attending physician: Renny Reina Consults: 07/16/19 14:04 Consult Physician Routine Consulting Provider: Guillermo Nair Consult Reason/Comments: known to you; post lobectomy Do you want consulting provider notified?: Already Contacted Primary care physician: Maxi Sotelo Hospital Course: FINAL DIAGNOSIS: 1. Adenocarcinoma right upper lobe of the lung 2. Hypertension 3. Hyperlipidemia 4. Inflammatory bowel disease 5. Graves' disease with partial thyroidectomy 6. Previous tobacco dependence 7. Chronic obstructive pulmonary disease with preoperative FEV1 76% of predicted PRINCIPAL PROCEDURE: 1. Robotic assisted thoracoscopic right upper lobectomy with mediastinal lymph node dissection HISTORY OF PRESENT ILLNESS: This is a 69-year-old active lady who follows on an outpatient basis with Dr Maxi Sotelo and Dr Sarah Nair. Due to her history of irritable bowel syndrome she had a recent MRI of the abdomen with the upper cuts revealing a mass in the right lung. She subsequently underwent workup including CT scan, PET scan, pulmonary function testing, and needle biopsy. This demonstrated a less than 2 cm mass peripherally in the right upper lobe, which was biopsy-proven adenocarcinoma with no evidence of metastasis by CT or PET criteria. It was considered a clinical stage IA tumor and the patient was referred to Dr. Reina for lobectomy. She was recommended to undergo robotic- assisted right thoracoscopic upper lobectomy with mediastinal lymph node dissection. The usual perioperative course was discussed in detail with the patient and her family, all risks and benefits were explained, all questions were answered, and consent was obtained to proceed with surgery. The patient was scheduled for surgery at the earliest possible date. HOSPITAL COURSE: The patient was brought to the hospital on 07/16/2019, taken to the preoperative area, prepared in the usual fashion, and subsequently taken to the operating room where Dr. Reina performed a robotic assisted thoracoscopic right upper lobectomy with mediastinal lymph node dissection. Upon completion of surgery the patient was extubated and taken to the recovery room where she was recovered and monitored hemodynamically. She was eventually admitted to 3 S. cardiac stepdown unit for further monitoring. There was no air leak in her chest tube and she was placed to waterseal. She continued to recover uneventfully and her right pleural chest tube was discontinued on postop day #2. Repeat chest x-ray was stable. Her oxygen was titrated down, she was tolerating oral diet, her pain was controlled, and she was ready to be discharged to home on postoperative day #3. She received written and verbal instruction regarding her medications, activity restrictions, signs and symptoms requiring physician notification, and follow-up appointments. COMPLICATIONS: The patient experienced no postoperative complications. Patient Condition at Discharge: Stable Plan - Discharge Summary Discharge Rx Participant: Yes New Discharge Prescriptions: New Acetaminophen Tab [Tylenol] 1,000 mg PO Q6HR PRN tab PRN Reason: Fever And/ Or Pain Continue ALPRAZolam [Xanax] 0.75 mg PO HS PRN PRN Reason: Anxiety Atenolol [Tenormin] 50 mg PO HS Montelukast [Singulair] 10 mg PO HS Imipramine HCl [Tofranil] 100 mg PO HS Ibuprofen 400 mg PO Q8H PRN PRN Reason: Pain Atorvastatin [Lipitor] 10 mg PO HS Albuterol Sulfate [Ventolin HFA] 1 - 2 puff INHALATION Q6H PRN PRN Reason: Shortness Of Breath Entyvio IV Q60D Discharge Medication List ALPRAZolam [Xanax] 0.75 mg PO HS PRN 10/10/15 [History] Atenolol [Tenormin] 50 mg PO HS 10/10/15 [History] Imipramine HCl [Tofranil] 100 mg PO HS 10/10/15 [History] Montelukast [Singulair] 10 mg PO HS 10/10/15 [History] Albuterol Sulfate [Ventolin HFA] 1 - 2 puff INHALATION Q6H PRN 06/10/19 [History] Atorvastatin [Lipitor] 10 mg PO HS 06/10/19 [History] Ibuprofen 400 mg PO Q8H PRN 06/10/19 [History] Entyvio IV Q60D 07/14/19 [History] Acetaminophen Tab [Tylenol] 1,000 mg PO Q6HR PRN tab 07/19/19 [Rx] Follow up Appointment(s)/Referral(s): Maxi Sotelo MD [Primary Care Provider] - 1 Week Renny Reina MD [STAFF PHYSICIAN] - 1 Week Guillermo Nair MD [STAFF PHYSICIAN] - 1 Week Patient Instructions/Handouts: How to Stop Smoking (DC), Lung Lobectomy (DC) Activity/Diet/Wound Care/Special Instructions: DISCHARGE INSTRUCTIONS: 1. No driving for 2 weeks, or until physician gives their ok. 2. No lifting, pushing, or pulling more than 10 pounds for 2 weeks. The physician will advise of any restriction changes. 3. Continue pain control per as needed orders. Alternate acetaminophen (Tylenol) and ibuprofen (Motrin/Advil) for pain. 4. Continue with incentive spirometry and splinting until otherwise directed by the physician. 5. Leave chest tube dressing for 48 hours. After that, remove all dressings and shower daily. 6. Routine incision care. No powders, lotions, ointments on incisions. 7. Please call surgeon/ENGINE ASSEMBLY SUPERVISOR for temp greater than 101 F or purulent drainage from incisions. 8. Smoking cessation counseling and program information provided. For any questions or concerns please call nurse practitioners Melyssa at [phone] or Isai at [phone] Discharge Disposition: HOME SELF-CARE
--- NOTE | 2019-07-22 05:09 | CDI ---
Documentation Clarification Form Date: 07/22/2019 From: Eduardo Amos Phone: If you have a question about this query, please contact Modesta Weston, [place] at [phone] between 8am and 5pm. Admit Date: 07/16/2019 Discharge Date: 07/19/2019 Patient Name: Dilia Stevens Visit Number: [id number] ATTENTION: The Clinical Documentation Specialists (CDI) and [facility] Coding Staff appreciate your assistance in clarifying documentation. Please respond to the clarification below the line at the bottom and electronically sign. The CDI & [facility] Coding staff will review the response and follow-up if needed. Please note: Queries are made part of the Legal Health Record. If you have any questions, please contact the author of this message via ITS. Dear Renny Lam, Pneumothorax and minimal amount of air leak is documented in the 07/15 Dr. Joanie Li Consult note. Patients Admitting Diagnosis: Adenocarcinoma of upper lung lobe. Post-Operative Diagnosis: Adenocarcinoma of upper lung lobe. Procedure performed: Thoracoscopic right upper lobectomy with mediastinal lymph node dissection History/Risk Factors: Hyperlipidemia, Lung adenocarcinoma Treatment: chest tubes in place and Monitor for air leak Consults: 07/15 Consult note mentioned as "Tiny right apical pneumothorax and the patient has to chest tubes in place with a minimal amount of air leak". In order to accurately reflect this patients severity of illness, please clarify if the Pneumothorax and Air Leak____ -has been ruled out -is a complication of surgical procedure -is an expected outcome of the surgical procedure -is related to co-morbid condition(s) of -Other please specify -Unable to determine Pneumothorax was not significant or real. Airleak was not significant and not a complication of the procedure. Rule out both. MTDD
== END 2019-07-19 11:55 | disposition home or self-care (01) | DRG 165 ==
LOC: 2ORMAIN 06:00 → 3SCARD 13:26
PROVIDERS: ADMIT Thoracic Surgery (Cardiothoracic Vascular Surgery); ATTEND Thoracic Surgery (Cardiothoracic Vascular Surgery)
PROC: 8E0W4CZ Robotic Assisted Procedure of Trunk Region, Percutaneous Endoscopic Approach (ICD-10-PCS; principal; 2019-07-16 07:30)
PROC: 0BTC4ZZ Resection of Right Upper Lung Lobe, Percutaneous Endoscopic Approach (ICD-10-PCS; principal; 2019-07-16 07:30)
PROC: 07T74ZZ Resection of Thorax Lymphatic, Percutaneous Endoscopic Approach (ICD-10-PCS; principal; 2019-07-16 07:30)
DX: C34.11 Malignant neoplasm of upper lobe, right bronchus or lung (principal); E78.5 Hyperlipidemia, unspecified; E89.0 Postprocedural hypothyroidism; F17.200 Nicotine dependence, unspecified, uncomplicated; J44.9 Chronic obstructive pulmonary disease, unspecified; I11.9 Hypertensive heart disease without heart failure; Z79.899 Other long term (current) drug therapy; Z80.49 Family history of malignant neoplasm of other genital organs; Z80.7 Family history of other malignant neoplasms of lymphoid, hematopoietic and related tissues; Z85.118 Personal history of other malignant neoplasm of bronchus and lung; Z90.89 Acquired absence of other organs; Z98.51 Tubal ligation status; Z88.0 Allergy status to penicillin; Z88.8 Allergy status to other drugs, medicaments and biological substances
CPT/HCPCS: 71045; 71046; 80048; 85025; 85027; 86850; 86900; 86901; 88305; 88309; 88313; 88331; 94640

== ENCOUNTER → 2020-01-20 | Outpatient (CLI) | payer MEDICARE ==
[2020-01-20 12:59] LABS: African American GFR (CKD) >90 (>60 ml/min/1.73 sqM); Blood Urea Nitrogen 11 mg/dL (7-17); Non-African American GFR(CKD) 89 (>60 ml/min/1.73 sqM)
--- NOTE | 2020-01-20 13:36 | CT ---
EXAMINATION TYPE: CT chest w con DATE OF EXAM: 01/20/2020 COMPARISON: CT chest June 08, 2019. PET CT June 12, 2019 HISTORY: Follow up to lung CA, post partial Rt lobectomy CT DLP: 334.8 mGycm. Automated Exposure Control for Dose Reduction was Utilized. TECHNIQUE: CT scan of the thorax is performed following with IV Contrast, patient injected with 100 mL of Isovue 300. FINDINGS: LUNGS: Background Mild underlying emphysematous change with mild/moderate scattered parenchymal fibr otic changes is redemonstrated. Interval surgery with right hilar surgical clips and right-sided volu me loss. There is right hilar pleural thickening along with thickening lateral right mid lung axial i mage 22. No new nodules or masses. No pleural effusion or pneumothorax. MEDIASTINUM: There are no new greater than 1 cm hilar or mediastinal lymph nodes. Stable prominent l ow dense left hilar lymph node axial image 24. Heart size stable and upper limits of normal. No peric ardial effusion is seen. Calcification level of mitral valve. Coronary artery calcification is prese nt. Subcentimeter right thyroid nodules redemonstrated OTHER: Small splenule anteriorly axial image 49. Underlying scoliotic curvature. Exaggerated thoracic kyphosis. IMPRESSION: Interval partial pneumonectomy changes right lung. No new suspicious mass or adenopathy t o suggest active neoplastic recurrence.
== END | disposition home or self-care (01) ==
LOC: RADCTMAIN 12:13
PROVIDERS: ATTEND Internal Medicine Critical Care Medicine
DX: R91.1 Solitary pulmonary nodule (principal); Z88.0 Allergy status to penicillin; Z88.1 Allergy status to other antibiotic agents; Z90.2 Acquired absence of lung [part of]
CPT/HCPCS: 82565; 84520; 71260; 36415; Q9967

== ENCOUNTER → 2020-06-27 | Outpatient (CLI) | payer MEDICARE ==
--- NOTE | 2020-06-28 09:46 | MM ---
Reason for exam: screening (asymptomatic). Last mammogram was performed 1 year and 2 months ago. History: Patient is postmenopausal and is nulliparous. Family history of breast cancer in mother at age 65 and premenopausal breast cancer in maternal aunt. Took hormonal contraceptives beginning at age 20. Physical Findings: A clinical breast exam by your physician is recommended on an annual basis and results should be correlated with mammographic findings. MG 3D Screening Mammo W/Cad Bilateral CC and MLO view(s) were taken. Prior study comparison: April 16, 2019, bilateral MG 3d diag mammo w/cad MARIELA. October 27, 2018, left breast MG 3d diag mammo w/cad LT. The breast tissue is heterogeneously dense. This may lower the sensitivity of mammography. There is no discrete abnormality. ASSESSMENT: Benign, BI-RAD 2 RECOMMENDATION: Routine screening mammogram of both breasts in 1 year.
--- NOTE | 2020-06-28 10:46 | BD ---
EXAMINATION TYPE: Axial Bone Density DATE OF EXAM: 06/27/2020 COMPARISON: 03/31/2018 CLINICAL HISTORY: Postmenopausal female. Height: 63.5 IN Weight: 196 LBS RISK FACTORS HISTORY OF: Active: YES Postmenopausal woman: AGE 49 Lost more than 2 inches in height since high school: YES 05/07" MEDICATIONS: Thyroid Medications: YES Which medication: Levothyroxine How Lon MONTHS Additional Medications: LEVOTHYROXINE, VIT D 42940 PER WEEK, CHOLESTEROL MEDS, SINGULAIR, ANXIETY MED S EXAM MEASUREMENTS: Bone mineral densitometry was performed using the [employer] System. Bone mineral density as measured about the Lumbar spine is: ----- L1-L4(G/cm2): 1.294 T Score Values are as follows: ----- L2: 0.6 ----- L3: 0.1 ----- L4: 2.4 ----- L1-L4: 1.0 Bone mineral density has: Increased 6.0% since study of: 03/31/2018 Bone mineral density about the R hip (g/cm2): 0.864 Bone mineral density about the L hip (g/cm2): 0.942 T Score values are as follows: -----R Neck: -1.3 -----L Neck: -0.7 -----R Total: -0.6 -----L Total: -0.5 Bone mineral density has: Increased 1.6% since study of: 03/31/2018 IMPRESSION: Osteopenia (T Score between -2.5 and -1) remains present right hip. There remains slightly increased risk of fracture and the patient may be considered for treatment. Re-Screen 2-5 years. NOTE: T-SCORE=SD OF THE YOUNG ADULT MEAN.
== END | disposition home or self-care (01) ==
LOC: RADMAMWWP 15:47
PROVIDERS: ATTEND Family Medicine
DX: Z12.31 Encounter for screening mammogram for malignant neoplasm of breast (principal); M85.80 Other specified disorders of bone density and structure, unspecified site; N95.9 Unspecified menopausal and perimenopausal disorder
CPT/HCPCS: 77063; 77067; 77080

== ENCOUNTER → 2020-07-18 | Outpatient (CLI) | payer MEDICARE ==
[2020-07-18 14:24] LABS: African American GFR (CKD) >90 (>60 ml/min/1.73 sqM); Blood Urea Nitrogen 14 mg/dL (7-17); Non-African American GFR(CKD) 88 (>60 ml/min/1.73 sqM)
--- NOTE | 2020-07-18 15:09 | CT ---
EXAMINATION TYPE: CT chest w con DATE OF EXAM: 07/18/2020 COMPARISON: Chest CT January 20, 2020 and older studies. PET/CT June 12, 2019 HISTORY: follow up lung cancer status post partial right-sided lobectomy. CT DLP: 356.6 mGycm. Automated Exposure Control for Dose Reduction was Utilized. TECHNIQUE: CT scan of the thorax is performed following with IV Contrast, patient injected with 100 mL of Isovue 300. FINDINGS: LUNGS: Background Mild underlying emphysematous change with mild/moderate scattered parenchymal fibr otic changes is redemonstrated right hilar surgical clips and right-sided volume loss redemonstrated. There is right hilar pleural thickening along with sutures and thickening lateral right mid lung axi al image 21 which demonstrated. No new nodules or masses. No pleural effusion or pneumothorax. MEDIASTINUM: There are stable prominent bilateral hilar lymph nodes axial image 26 for reference. No new greater than 1 cm mediastinal lymph nodes. Heart size stable and upper limits of normal. No peric ardial effusion is seen. Calcification at level of mitral valve is redemonstrated. Coronary artery c alcification is redemonstrated. Lipomatous hypertrophy of the intra-arterial septum again seen. Subce ntimeter right thyroid nodule axial image 3 redemonstrated. Some areas of wall thickening along mid t o distal esophagus again seen with small hiatal hernia. Correlate clinically. OTHER: Small splenule anteriorly axial image 51 redemonstrated. Underlying scoliotic curvature. Exagg erated thoracic kyphosis. Stable slight thickening to left adrenal gland. IMPRESSION: Posttreatment changes right lung stable. No new or enlarging suspicious mass or adenopath y to suggest active neoplastic recurrence.
== END ==
LOC: RADCTMAIN 13:39
PROVIDERS: ATTEND Internal Medicine Critical Care Medicine
DX: C34.90 Malignant neoplasm of unspecified part of unspecified bronchus or lung (principal); Z90.2 Acquired absence of lung [part of]
CPT/HCPCS: 82565; 84520; 71260; 36415; Q9967

== ENCOUNTER → 2020-08-23 | Outpatient (CLI) | payer MEDICARE | END | disposition home or self-care (01) | LOC: LABWHC1 13:17 | PROVIDERS: ATTEND Internal Medicine | DX: K51.519 Left sided colitis with unspecified complications (principal) | CPT/HCPCS: 36415; 86480 ==

== ENCOUNTER → 2020-08-25 | Outpatient (CLI) | payer MEDICARE ==
--- NOTE | 2020-08-25 12:54 | US ---
EXAMINATION TYPE: US venous doppler duplex LE BI DATE OF EXAM: 08/25/2020 12:37 PM COMPARISON: NONE CLINICAL HISTORY: R60.0 edema. Bilateral LE edema with left greater than right x 2 to 3 months. SIDE PERFORMED: Bilateral TECHNIQUE: The lower extremity deep venous system is examined utilizing real time linear array sonog jill with graded compression, doppler sonography and color-flow sonography. VESSELS IMAGED: Common Femoral Vein Deep Femoral Vein Greater Saphenous Vein * Femoral Vein: dual veins noted bilateral mid and distal thigh with color flow patency documented in d ual veins Popliteal Vein Small Saphenous Vein * Proximal Calf Veins (* superficial vessels) Right Leg: Negative for DVT Left Leg: Intimal wall thickening is noted distal left Femoral Vein, but compresses and color flow i s noted within dual veins; otherwise is negative for DVT. Grayscale, color doppler, spectral doppler imaging performed of the deep veins of the bilateral lower extremities. IMPRESSION: Moderate subcutaneous edema bilateral ankle level. Suspect prior chronic DVT left lower e xtremity distal superficial femoral vein level. No ultrasound evidence for acute DVT in either lower extremity on today's study.
--- NOTE | 2020-08-25 12:58 | XR ---
EXAMINATION TYPE: XR foot complete LT DATE OF EXAM: 08/25/2020 CLINICAL HISTORY: pain TECHNIQUE: Frontal, lateral and oblique images of the left foot are obtained. COMPARISON: None. FINDINGS: There is no acute fracture/dislocation evident. Moderate hallux valgus deformity noted of the first metatarsal phalangeal joint. The overlying soft tissue appears unremarkable. IMPRESSION: There is no acute fracture or dislocation. ICD 10 NO FRACTURE, INITIAL EVALUATION
== END | disposition home or self-care (01) ==
LOC: RADUSWWP 11:44
PROVIDERS: ATTEND Family Medicine
DX: R60.0 Localized edema (principal); M79.672 Pain in left foot
CPT/HCPCS: 93970

== ENCOUNTER → 2021-01-30 | Outpatient (CLI) | payer MEDICARE ==
[2021-01-30 16:02] LABS: African American GFR (CKD) >90 (>60 ml/min/1.73 sqM); Blood Urea Nitrogen 14 mg/dL (7-17); Non-African American GFR(CKD) >90 (>60 ml/min/1.73 sqM)
--- NOTE | 2021-01-31 08:26 | CT ---
EXAMINATION TYPE: CT chest w con DATE OF EXAM: 01/30/2021 COMPARISON: Prior chest CT July 18, 2020 and older studies. PET/CT June 12, 2019 HISTORY: H/O malignant neoplasm of right sided lung With surgical resection 2019. CT DLP: 392.8 mGycm. Automated Exposure Control for Dose Reduction was Utilized. TECHNIQUE: CT scan of the thorax is performed following with IV Contrast, patient injected with 100 mL of Isovue 300. FINDINGS: LUNGS: Background Mild to moderate underlying emphysematous change with mild/moderate scattered pare nchymal fibrotic changes is redemonstrated. Right hilar surgical clips and right-sided volume loss re demonstrated. There is right hilar pleural thickening along with sutures and thickening right mid christopher g from hilum region extending superiorly redemonstrated. No new nodules or masses. No pleural effusio n or pneumothorax. MEDIASTINUM: There are stable prominent bilateral hilar lymph nodes axial image 26 for reference. No new or enlarging greater than 1 cm mediastinal lymph nodes. Heart size stable and mildly enlarged. No pericardial effusion is seen. Calcification at level of mitral valve is redemonstrated. Coronary ar felicia calcification is redemonstrated. Lipomatous hypertrophy of the intra-arterial septum is again se en. Subcentimeter right thyroid nodule axial image 5 posteriorly is redemonstrated. Some areas of wal l thickening along mid to distal esophagus again seen with small hiatal hernia. Correlate clinically. OTHER: Small splenule anteriorly axial image 48 redemonstrated. Underlying scoliotic curvature. Exagg erated thoracic kyphosis. Stable slight thickening to left adrenal gland. No new adrenal masses. IMPRESSION: Posttreatment changes right lung redemonstrated and stable. No new or enlarging suspiciou s masses or adenopathy to suggest active neoplastic recurrence.
== END | disposition home or self-care (01) ==
LOC: RADCTMAIN 15:18
PROVIDERS: ATTEND Internal Medicine Critical Care Medicine
DX: Z85.118 Personal history of other malignant neoplasm of bronchus and lung (principal)
CPT/HCPCS: 82565; 84520; 71260; 36415; Q9967

== ENCOUNTER → 2021-07-18 | Outpatient (CLI) | payer MEDICARE ==
--- NOTE | 2021-07-19 13:53 | MM ---
Reason for exam: screening (asymptomatic). Last mammogram was performed 1 year and 1 month ago. History: Patient is postmenopausal and is nulliparous. Family history of breast cancer in mother at age 65 and premenopausal breast cancer in maternal aunt. Took hormonal contraceptives beginning at age 20. Physical Findings: A clinical breast exam by your physician is recommended on an annual basis and results should be correlated with mammographic findings. MG 3D Screening Mammo W/Cad Bilateral CC and MLO view(s) were taken. Prior study comparison: June 27, 2020, bilateral MG 3d screening mammo w/cad. April 16, 2019, bilateral MG 3d diag mammo w/cad MARIELA. The breast tissue is heterogeneously dense. This may lower the sensitivity of mammography. Stable benign calcifications. Asymmetric breast tissue inner left breast. No significant changes when compared with prior studies. ASSESSMENT: Benign, BI-RAD 2 RECOMMENDATION: Routine screening mammogram of both breasts in 1 year.
== END | disposition home or self-care (01) ==
LOC: RADMAMWWP 14:46
PROVIDERS: ATTEND Family Medicine
DX: Z12.31 Encounter for screening mammogram for malignant neoplasm of breast (principal); Z78.0 Asymptomatic menopausal state; Z80.3 Family history of malignant neoplasm of breast
CPT/HCPCS: 77063; 77067

== ENCOUNTER → 2022-02-07 | Outpatient (CLI) | payer MEDICARE ==
[2022-02-07 15:53] LABS: African American GFR (CKD) >90 (>60 ml/min/1.73 sqM); Blood Urea Nitrogen 10 mg/dL (7-17); Non-African American GFR(CKD) >90 (>60 ml/min/1.73 sqM)
--- NOTE | 2022-02-07 16:44 | CT ---
EXAMINATION TYPE: CT chest w con DATE OF EXAM: 02/07/2022 COMPARISON: 01/30/2021 HISTORY: Small cell Lung CA CT DLP: 678 mGycm, Automated exposure control for dose reduction was used. CONTRAST: Performed injected with 100cc mL of Isovue 300. TECHNIQUE: Axial images were obtained at 5 mm thick sections. Reconstructed images are reviewed on [employer] computer in the coronal plane. FINDINGS: Portion of the thyroid visualized is normal. No suspicious lung nodules or focal infiltrates are present. The prominence of the hilar lymph nodes appears diminished from comparison. The ascending aorta diameter at the level of the main pulmonary artery is 3.3 cm. The main pulmonary artery diameter at the bifurcation is 3.3 cm. Coronary artery calcifications present. Limited CT sections are obtained through the upper abdomen. There is mild fatty infiltration of the l iver. Small hiatal hernia is present. IMPRESSIONS: 1. Suspicious changes to suggest recurrent or metastatic lung cancer. Continued monitoring is recomme nded.
== END | disposition home or self-care (01) ==
LOC: RADCTMAIN 15:24
PROVIDERS: ATTEND Internal Medicine Critical Care Medicine
DX: C34.90 Malignant neoplasm of unspecified part of unspecified bronchus or lung (principal)
CPT/HCPCS: 82565; 84520; 71260; 36415; Q9967

== ENCOUNTER → 2022-09-14 | Outpatient (CLI) | payer MEDICARE ==
--- NOTE | 2022-09-17 17:24 | MM ---
Reason for Exam: Screening (asymptomatic). Last mammogram was performed 1 year(s) and 2 month(s) ago. Patient History: Menarche at age 13. Patient has no children. Postmenopausal. Hormonal Contraceptives, from age 20 until age 30. Maternal aunt had breast cancer. Mother had breast cancer, age 65. Risk Values: Jen 5 year model risk: 3.5%. NCI Lifetime model risk: 8.8%. Prior Study Comparison: 04/16/2019 Bilateral Diagnostic Mammogram, [facility]. 06/27/2020 Bilateral Screening Mammogram, [facility]. 07/18/2021 Bilateral Screening Mammogram, [facility]. Tissue Density: The breast tissue is heterogeneously dense. This may lower the sensitivity of mammography. Findings: Analyzed By CAD. Pattern appears symmetrical and stable. Focal asymmetry is within the medial left mid breast unchanged. Benign stable calcifications are right breast. No suspicious groups of microcalcifications, spiculated or lobular masses, architectural distortion or other secondary signs of malignancy are mammographically apparent. Overall Assessment: Benign, BI-RAD 2 Management: Screening Mammogram of both breasts in 1 year. A negative mammogram report should not preclude additional follow up of suspicious palpable abnormalities. Patient should continue monthly self breast exam. A clinical breast exam by your physician is recommended on an annual basis and results should be correlated with mammographic findings. Electronically signed and approved by: Gilbert Diallo D.O. Radiologis
== END | disposition home or self-care (01) ==
LOC: RADMAMWWP 13:53
PROVIDERS: ATTEND Family Medicine
DX: Z12.31 Encounter for screening mammogram for malignant neoplasm of breast (principal); Z78.0 Asymptomatic menopausal state; Z80.3 Family history of malignant neoplasm of breast
CPT/HCPCS: 77063; 77067

== ENCOUNTER → 2023-02-19 | Outpatient (CLI) | payer MEDICARE ==
--- NOTE | 2023-02-20 17:09 | CTL ---
EXAMINATION TYPE: CT Low Dose Lung DATE OF EXAM ORDERED: 02/19/2023 HISTORY: . Lung cancer screening CT DLP: 82.[address] CTDI: 2.3 mGy Automated exposure control for dose reduction was used. SCREENING VISIT: Initial COMPARISON: 02/07/2022 TECHNIQUE: Low dose computed tomography scan was performed through the chest at 1 mm thick sections a nd reconstructed images in the coronal plane at [address] DIAGNOSTIC QUALITY: Satisfactory FINDINGS: LUNG NODULES: Present, detailed below:1. There is a 0.3 cm peripheral nodule lateral left upper lung field. Series 4 image 47. Smaller punctate densities in the right lateral upper lung field. 2. There is a peripheral left upper lobe nodule measuring 0.5 cm. Series 4 image 3. There is a 0.4 cm nodule anterior left upper lung field. Series 4 image 65. 4. There is a 0.4 cm nodule lateral left upper lung field. Series 4 image 70. 5. There are couple of 1 to 2 mm densities in the anterior left midlung. Series 4 image 88. LUNGS: COPD: Severity: None Fibrosis: Severity: None Lymph nodes: None Other findings: None RIGHT PLEURAL SPACE: Effusion: None Calcification: None Thickening: None Pneumothorax: None LEFT PLEURAL SPACE: Effusion: None Calcification: None Thickening: None Pneumothorax: None HEART: Heart Size: Normal Coronary calcification: Moderate Pericardial effusion: None OTHER FINDINGS: Upper abdomen: Normal Bony thorax: Normal Supraclavicular region: Normal Other: Ascending thoracic aorta at the level the main pulmonary artery measures 3.5 cm. The main pul monary artery at the bifurcation measures 3.2 cm. IMPRESSION: Scattered small nodules with a probably benign appearance. Short-term follow-up in 6 nirmal hs is recommended to confirm stability. FOLLOW UP CT CHEST RECOMMENDATION: Follow up CT chest in [address] LUNG RAD: Lung-Rad 3 Probably Benign
== END | disposition home or self-care (01) ==
LOC: RADCTMAIN 18:56
PROVIDERS: ATTEND Internal Medicine Critical Care Medicine
DX: Z12.2 Encounter for screening for malignant neoplasm of respiratory organs (principal); F17.210 Nicotine dependence, cigarettes, uncomplicated; R91.8 Other nonspecific abnormal finding of lung field
CPT/HCPCS: 71271

== ENCOUNTER → 2023-09-19 | Outpatient (CLI) | payer MEDICARE ==
--- NOTE | 2023-09-22 20:18 | MM ---
Reason for Exam: Screening (asymptomatic). Last screening mammogram was performed 12 month(s) ago. Patient History: Menarche at age 13. Patient has no children. Postmenopausal. Hormonal Contraceptives, from age 20 until age 30. Maternal aunt had breast cancer. Mother had breast cancer, age 65. Risk Values: Jen 5 year model risk: 3.5%. NCI Lifetime model risk: 8.4%. Prior Study Comparison: 03/29/2017 Bilateral Screening Mammogram, [facility]. 03/31/2018 Bilateral Screening Mammogram, [facility]. 04/04/2018 Left Diagnostic Mammogram, [facility]. 10/27/2018 Left Diagnostic Mammogram, [facility]. 04/16/2019 Bilateral Diagnostic Mammogram, [facility]. 06/27/2020 Bilateral Screening Mammogram, [facility]. 07/18/2021 Bilateral Screening Mammogram, [facility]. 09/14/2022 Bilateral MG 3D screening mammo w/cad, [facility]. Tissue Density: There are scattered areas of fibroglandular density. Findings: Analyzed By CAD. Unchanged grouped coarse calcifications upper outer quadrant right breast. Unchanged global asymmetry outer aspect of the right breast CC view. Unchanged focal asymmetry outer left breast middle depth. There is no suspicious group of microcalcifications or new suspicious mass in either breast. Overall Assessment: Benign, BI-RAD 2 Management: Screening Mammogram of both breasts in 1 year. . Patient should continue monthly self-breast exams. A clinical breast exam by your physician is recommended on an annual basis. This exam should not preclude additional follow-up of suspicious palpable abnormalities. Note on Jen scores and lifetime risk: 1. A Jen score greater than 3% is considered moderate risk. If this is the case, consider specialist referral to assess eligibility for a risk reducing agent. 2. If overall lifetime risk for the development of breast cancer is 20% or higher, the patient may qualify for future screening with alternating mammogram and breast MRI. Electronically signed and approved by: Basil Bynum M.D. Radiologist
== END | disposition home or self-care (01) ==
LOC: RADMAMWWP 13:32
PROVIDERS: ATTEND Family Medicine
DX: Z12.31 Encounter for screening mammogram for malignant neoplasm of breast (principal); Z80.3 Family history of malignant neoplasm of breast; Z78.0 Asymptomatic menopausal state
CPT/HCPCS: 77063; 77067

== ENCOUNTER → 2024-03-05 | Outpatient (CLI) | payer MEDICARE ==
--- NOTE | 2024-03-05 10:22 | CTL ---
EXAMINATION TYPE: CT Low Dose Lung DATE OF EXAM ORDERED: 03/05/2024 COMPARISON: 02/19/2023 CLINICAL INDICATION: Female, 73 years old with history of Z12.2 Screening; PHH, personal tobacco use, Lung cancer screening, History of Smoking/tobacco use. TECHNIQUE: Low dose computed tomography scan was performed through the chest at 1 mm thick sections a nd reconstructed images in multiple planes at 1 mm and [address] DLP: 78.[address] CTDI: 2.3 mGy Automated exposure control for dose reduction was used. CT DIAGNOSTIC QUALITY: Satisfactory FINDINGS: There are mild/moderate emphysematous changes. There appear to be postsurgical changes of partial rig ht middle lobe lobectomy. The multiple small sub-5 mm groundglass densities and subpleural parenchymal left upper lobe are stab le. The previously described small sub-5 mm nodules in the left lower lobe are stable as well. No new or suspicious lung mass or nodule is seen. There is no airspace consolidation or abnormal interstitial density. There is no pleural effusion or pneumothorax. There is no mediastinal, hilar or axillary adenopathy. There is a defibrillator device. There is a le ft apical occlusion device. Limited scanning through the upper abdomen reveals no gross abnormality. No focal osseous lesions are seen. IMPRESSION: 1. Mild to moderate emphysematous changes. 2. Stable left lung nodularity as described above. 3. Stable changes of partial right middle lobe lobectomy. 4. No acute cardiopulmonary disease. [facility], Workstation: [id number], 03/05/2024 10:19 AM
== END | disposition home or self-care (01) ==
LOC: RADCTMAIN 09:33
PROVIDERS: ATTEND Internal Medicine Critical Care Medicine
CPT/HCPCS: 71271

== ENCOUNTER → 2024-10-13 | Outpatient (CLI) | payer MEDICARE ==
--- NOTE | 2024-10-13 13:59 | MM ---
Reason for Exam: Screening (asymptomatic). Last mammogram was performed 1 year(s) and 1 month(s) ago. Patient History: Menarche at age 13. Patient has no children. Postmenopausal. Hormonal Contraceptives, from age 20 until age 30. Maternal aunt had breast cancer. Mother had breast cancer, age 65. Risk Values: Jen 5 year model risk: 3.5%. NCI Lifetime model risk: 7.9%. Prior Study Comparison: 07/18/2021 Bilateral Screening Mammogram, [facility]. 09/14/2022 Bilateral MG 3D screening mammo w/cad, [facility]. 09/19/2023 Bilateral MG 3D screening mammo w/cad, [facility]. Tissue Density: The breasts are heterogeneously dense, which may obscure small masses. Findings: Analyzed By CAD. A group of benign-appearing round and linear calcifications in the right breast is redemonstrated. There is occasional benign-appearing linear calcifications in the left breast redemonstrated. Stable asymmetric prominent tissue in the left breast centrally. There is no suspicious new group of microcalcifications or new suspicious mass in either breast. Overall Assessment: Benign, BI-RAD 2 Management: Screening Mammogram of both breasts in 1 year. . Patient should continue monthly self-breast exams. A clinical breast exam by your physician is recommended on an annual basis. This exam should not preclude additional follow-up of suspicious palpable abnormalities. Note on Jen scores and lifetime risk: 1. A Jen score greater than 3% is considered moderate risk. If this is the case, consider specialist referral to assess eligibility for a risk reducing agent. 2. If overall lifetime risk for the development of breast cancer is 20% or higher, the patient may qualify for future screening with alternating mammogram and breast MRI. [facility], , 10/13/2024 1:55 PM. Electronically signed and approved by: Cristino Desai M.D.
== END | disposition home or self-care (01) ==
LOC: RADMAMWWP 12:48
PROVIDERS: ATTEND Family Medicine
DX: Z12.31 Encounter for screening mammogram for malignant neoplasm of breast (principal); R92.333 Mammographic heterogeneous density, bilateral breasts; R92.1 Mammographic calcification found on diagnostic imaging of breast; Z78.0 Asymptomatic menopausal state; Z80.3 Family history of malignant neoplasm of breast; Z92.0 Personal history of contraception
CPT/HCPCS: 77063; 77067